=== PATIENT | male | born 1975 | race Caucasian/White ===

== ENCOUNTER 2020-02-16 19:44 | Emergency (ER) | payer BC ==
[~2020-02-16] VITALS: Ht 200.7 cm; Wt 111.1 kg
--- OUTSIDE RECORDS SUMMARY | ~2020-02-16 | XMS | Encounter Summary ---
Demographics + + + | Address | [address] | | | [place] [address] | + + + | Home Phone | | + + + | Preferred Language | Unknown | + + + | Marital Status | | + + + | Episcopal Affiliation | Unknown | + + + | Race | Unknown | + + + | Ethnic Group | Unknown | + + + Author + + + | Author | [facility] | | | and [place] | + + + | Organization | [facility] | | | and [place] | + + + | Address | Unknown | + + + | Phone | Unavailable | + + + Support + + +---------+ + | Name | Relationship | Address | Phone | + + +---------+ + | Lucy Valdez | ECON | Unknown | | + + +---------+ + Care Team Providers + +------+ + | Care Edge Cutting Machine Operator Name | Role | Phone | + +------+ + PCP | Unavailable | + +------+ + Encounter Details +--------+ + + + + | Date | Type | Department | Care Team | Description | +--------+ + + + + | 03/09/ | Emergency | [facility] | Conversion | CONTUSION OF BACK | | 2001 | | MEDICAL CENTER | Transaction, | | | | | EMERGENCY CENTER | Provider Unknown | | | | | [address] [facility] | | | | | | [place], [place] | (Fax) | | | | | [address] | | | | | | [phone] | | | +--------+ + + + + Social History + +-------+ +--------+------+ | Tobacco Use | Types | Packs/Day | Years | Date | | | | | Used | | + +-------+ +--------+------+ | Never Assessed | | | | | + +-------+ +--------+------+ + + + | Sex Assigned at | Date Recorded | | | | + + + | Not on file | | + + + + + + + | Job Start Date | Occupation | Industry | + + + + | Not on file | Not on file | Not on file | + + + + + + + + | Travel History | Travel Start | Travel End | + + + + + + | No recent travel history available. | + + documented as of this encounter Plan of Treatment Not on filedocumented as of this encounter Visit Diagnoses + + | Diagnosis | + + | Contusion of back(922.31) Contusion of back | + + documented in this encounter"
--- OUTSIDE RECORDS SUMMARY | ~2020-02-16 | XMS | Clinical Summary ---
Demographics + + + | Address | [address] | | | [place] [address] | + + + | Home Phone | | + + + | Preferred Language | Unknown | + + + | Marital Status | | + + + | Lutheran Affiliation | Unknown | + + + | Race | Unknown | + + + | Ethnic Group | Unknown | + + + Author + + + | Author | [facility] | | | and [place] | + + + | Organization | [facility] | | | and [place] | [...] Team Providers + +------+ + | Care Service Learning Coordinator Name | Role | Phone | + +------+ + PCP | Unavailable | + +------+ + Allergies No Known Allergies Medications Not on file Active Problems Not on file Social History + +-------+ +--------+------+ | Tobacco [...] recent travel history available. | + + Last Filed Vital Signs + + + + + | Vital Sign | Reading | Time Taken | Comments | + + + + + | Blood Pressure | - | - | | + + + + + | Pulse | - | - | | + + + + + | Temperature | - | - | | + + + + + | Respiratory Rate | - | - | | + + + + + | Oxygen Saturation | - | - | | + + + + + | Inhaled Oxygen | - | - | | | Concentration | | | | + + + + + | Weight | 111.1 kg (245 lb) | 10/29/2010 12:00 AM | | | | | PST | | + + + + + | Height | 200.7 cm (6' 7") | 10/29/2010 12:00 AM | | | | | PST | | + + + + + | Body Mass Index | 27.6 | 10/29/2010 12:00 AM | | | | | PST | | + + + + + Plan of Treatment + + + + + | Health Maintenance | Due Date | Last Done | Comments | + + + + + | Vaccine: | | | | | Dtap/Tdap/Td (1 - | 5 | | | | Tdap) | | | | + + + + + | Vaccine: Influenza | | | | | (Season Ended) | 0 | | | + + + + + Results Not on filefrom Last 3 Months
--- OUTSIDE RECORDS SUMMARY | ~2020-02-16 | XMS | Encounter Summary ---
Demographics + + + | Address | [address] | | | [place] [address] | + + + | Home Phone | | + + + | Preferred Language | Unknown | + + + | Marital Status | | + + + | Sikh Affiliation | Unknown | + + + | Race | Unknown | + + + | Ethnic Group | Unknown | + + + Author + + + | Author | [facility] | | | and [place] | + + + | Organization | [facility] | | | and [...] Team Providers + +------+ + | Care Vessel Operator Name | Role | Phone | + +------+ + PCP | Unavailable | + +------+ + Encounter Details +--------+ + + + + | Date | Type | Department | Care Team | Description | +--------+ + + + + | 03/09/ | Emergency | [facility] | Conversion | CONTUSION OF BACK | | 2001 | | MEDICAL CENTER | Transaction, | | | | | EMERGENCY CENTER | Provider Unknown | | | | | [address] [facility] | | | | | | [place], [place] | (Fax) | | | | | [address] | | | | | | [phone] | | | +--------+ + + + [...]
--- OUTSIDE RECORDS SUMMARY | ~2020-02-16 | XMS | Encounter Summary ---
Demographics + + + | Address | [address] | | | [place] [address] | + + + | Home Phone | | + + + | Preferred Language | Unknown | + + + | Marital Status | | + + + | Congregational Affiliation | Unknown | + + + | Race | Unknown | + + + | Ethnic Group | Unknown | + + + Author + + + | Author | [facility] | | | and [place] | + + + | Organization | [facility] | | | and [...] Team Providers + +------+ + | Care Electrical Tests Supervisor Name | Role | Phone | + +------+ + PCP | Unavailable | + +------+ + Encounter Details +--------+ + + + + | Date | Type | Department | Care Team | Description | +--------+ + + + + | 11/11/ | Hospital | [facility] | | | | 1995 | Encounter | MED CTR MP INTRA OP | | | | | | [address] | | | | | | [place] | | | | | | [address] | | | | | | [phone] | | | +--------+ + + + [...] filedocumented as of this encounter Visit Diagnoses Not on filedocumented in this encounter"
--- OUTSIDE RECORDS SUMMARY | ~2020-02-16 | XMS | Encounter Summary ---
Demographics + + + | Address | [address] | | | [place] [address] | + + + | Home Phone | | + + + | Preferred Language | Unknown | + + + | Marital Status | | + + + | Orthodox Affiliation | Unknown | + + + | Race | Unknown | + + + | Ethnic Group | Unknown | + + + Author + + + | Author | [facility] | | | and [place] | + + + | Organization | [facility] | | | and [place] | [...] Team Providers + +------+ + | Care Operations Support Professionals Name | Role | Phone | + +------+ + PCP | Unavailable | + +------+ + Encounter Details +--------+ + + + + | Date | Type | Department | Care Team | Description | +--------+ + + + + | 05/28/ | Abstract | [place] [facility] | [facility] | | | 2011 | | Conversion Location | SR | | | | | [address] [facility] | | | | | | [place], [place] | | | | | | [address] | | | | | | [phone] | | | +--------+ + + + [...] + + documented as of this encounter Last Filed Vital Signs + + + [...] | | + + + + + documented in this encounter Plan of Treatment Not on filedocumented as of this encounter Visit Diagnoses Not on filedocumented in this encounter
--- OUTSIDE RECORDS SUMMARY | ~2020-02-16 | XMS | Encounter Summary ---
Demographics + + + | Address | [address] | | | [place] [address] | + + + | Home Phone | | + + + | Preferred Language | Unknown | + + + | Marital Status | | + + + | Holiness Affiliation | Unknown | + + + | Race | Unknown | + + + | Ethnic Group | Unknown | + + + Author + + + | Author | [facility] | | | and [place] | + + + | Organization | [facility] | | | and [place] [...] Team Providers + +------+ + | Care Raw Cheese Worker Name | Role | Phone | + +------+ + PCP | Unavailable | + +------+ + Encounter Details +--------+ + + + + | Date | Type | Department | Care Team | Description | +--------+ + + + + | 10/15/ | Hospital | [facility] | | | | 2004 | Encounter | MED CTR GENERIC IP | | | | | | CONV DEPT [address] | | | | | | [address], | | | | | | [place] [address] | | | | | | [phone] | | | +--------+ + + + [...]
--- OUTSIDE RECORDS SUMMARY | ~2020-02-16 | XMS | Encounter Summary ---
Demographics + + + | Address | [address] | | | [place] [address] | + + + | Home Phone | | + + + | Preferred Language | Unknown | + + + | Marital Status | | + + + | Jewish Affiliation | Unknown | + + + | Race | Unknown | + + + | Ethnic Group | Unknown | + + + Author + + + | Author | [facility] | | | and [place] | + + + | Organization | [facility] | | | and [...] Team Providers + +------+ + | Care Weatherization Operations Manager Name | Role | Phone | + +------+ + PCP | Unavailable | + +------+ + Encounter Details +--------+ + + + + | Date | Type | Department | Care Team | Description | +--------+ + + + + | 11/07/ | Hospital | [facility] | | | | 1995 | Encounter | MED CTR LABORATORY | | | | | | [address] | | | | | | [place] | | | | | | [address] | | | | | | [phone] | | | +--------+ + + + [...]
--- OUTSIDE RECORDS SUMMARY | ~2020-02-16 | XMS | Encounter Summary ---
Demographics + + + | Address | [address] | | | [place] [address] | + + + | Home Phone | | + + + | Preferred Language | Unknown | + + + | Marital Status | | + + + | Taoist Affiliation | Unknown | + + + | Race | Unknown | + + + | Ethnic Group | Unknown | + + + Author + + + | Author | [facility] | | | and [place] | + + + | Organization | [facility] | [...] Team Providers + +------+ + | Care Picker Operator Name | Role | Phone | + +------+ + PCP | Unavailable | + +------+ + Encounter Details +--------+ + + + + | Date | Type | Department | Care Team | Description | +--------+ + + + + | 10/15/ | Hospital | [facility] | | | | 2004 | Encounter | MED CTR GENERIC IP | | | | | | CONV DEPT [address] | | | | | | [address] [place], | | | | | | [place] [address] | | | | | | [phone] | | | +--------+ + + + [...]
--- OUTSIDE RECORDS SUMMARY | ~2020-02-16 | XMS | Clinical Summary ---
Demographics + + + | Address | [address] | | | [place] [address] | + + + | Home Phone | | + + + | Preferred Language | Unknown | + + + | Marital Status | | + + + | Catholic Affiliation | Unknown | + + + | Race | Unknown | + + + | Ethnic Group | Unknown | + + + Author + + + | Author | [facility] | | | and [place] | + + + | Organization | [facility] | | | and [place] [...] Team Providers + +------+ + | Care Laundromat Manager Name | Role | Phone | [...]
--- OUTSIDE RECORDS SUMMARY | ~2020-02-16 | XMS | Encounter Summary ---
Demographics + + + | Address | [address] | | | [place] [address] | + + + | Home Phone | | + + + | Preferred Language | Unknown | + + + | Marital Status | | + + + | Yarsani Affiliation | Unknown | + + + | Race | Unknown | + + + | Ethnic Group | Unknown | + + + Author + + + | Author | [facility] | | | and [place] | + + + | Organization | [facility] | | | and [place] [...] Team Providers + +------+ + | Care Motor Vehicle Examiner Name | Role | Phone | + +------+ + PCP | Unavailable | + +------+ + Encounter Details +--------+ + + + + | Date | Type | Department | Care Team | Description | +--------+ + + + + | 11/07/ | Hospital | [facility] | | | | 1995 | Encounter | MED CTR LABORATORY | | | | | | [address] | | | | | | [place] | | | | | | [address] | | | | | | [phone] | | | +--------+ + + + [...]
--- OUTSIDE RECORDS SUMMARY | ~2020-02-16 | XMS | Encounter Summary ---
Demographics + + + | Address | [address] | | | [place] [address] | + + + | Home Phone | | + + + | Preferred Language | Unknown | + + + | Marital Status | | + + + | Rastafari Affiliation | Unknown | + + + | Race | Unknown | + + + | Ethnic Group | Unknown | + + + Author + + + | Author | [facility] | | | and [place] | + + + | Organization | [facility] | | | and [place] [...] Team Providers + +------+ + | Care Pantry Goods Maker Name | Role | Phone | + [...] | | | | | [address] [facility] | | | | | | [place], [place] | | | | | | [address] | | | | | | [phone] | | | +--------+ + + + [...]
--- OUTSIDE RECORDS SUMMARY | ~2020-02-16 | XMS | Encounter Summary ---
Demographics + + + | Address | [address] | | | [place] [address] | + + + | Home Phone | | + + + | Preferred Language | Unknown | + + + | Marital Status | | + + + | Catholic Affiliation | Unknown | + + + | Race | Unknown | + + + | Ethnic Group | Unknown | + + + Author + + + | Author | [facility] | | | and [place] | + + + | Organization | [facility] | | | and [place] | [...] Team Providers + +------+ + | Care Regulatory Technician Name | Role | Phone | + +------+ + PCP | Unavailable | + +------+ + Encounter Details +--------+ + + + + | Date | Type | Department | Care Team | Description | +--------+ + + + + | 11/11/ | Hospital | [facility] | | | | 1995 | Encounter | MED CTR MP INTRA OP | | | | | | [address] | | | | | | [place] | | | | | | [address] | | | | | | [phone] | | | +--------+ + + + [...]
[2020-02-16] MEDS ORDERED: LISINOPRIL-HCT1 EACH PO (20:03)
[2020-02-16] MEDS ORDERED: CITALOPRAM HBR20 MG PO (20:03)
--- NOTE | 2020-02-16 21:11 | EKG ---
[facility] [address] [facility] [place], [place] [address] Signed Sinus rhythm with 1st degree AV block Low voltage QRS Borderline ECG No previous ECGs available Confirmed by AHSAN WYNNE DO ([id number]) on 02/16/2020 9:11:36 PM Electronically Signed By: AHSAN WYNNE DO 02/16/202110 PATIENT NAME: STERLING QUIJANO Electrocardiogram DATE OF : 73 PHYSICIAN: AHSAN WYNNE DO REPORT #: [id number] REPORT IS CONFIDENTIAL AND NOT TO BE RELEASED WITHOUT AUTHORIZATION
== END 2020-02-16 22:48 | disposition home or self-care (01) ==
LOC: ED 19:44
PROC: 0HQ1XZZ Repair Face Skin, External Approach (ICD-10-PCS; principal; 2020-02-16)
DX: I95.1 Orthostatic hypotension (principal); S01.111A Laceration without foreign body of right eyelid and periocular area, initial encounter; S20.229A Contusion of unspecified back wall of thorax, initial encounter; S30.0XXA Contusion of lower back and pelvis, initial encounter; S50.12XA Contusion of left forearm, initial encounter; I10 Essential (primary) hypertension; F32.9 Major depressive disorder, single episode, unspecified; Z23 Encounter for immunization; Z79.899 Other long term (current) drug therapy; X58.XXXA Exposure to other specified factors, initial encounter
CPT/HCPCS: 12011; 70450; 71045; 72125; 80053; 81001; 83735; 84484; 85025; 85610; 85730; 90471; 90715; 93005; 93010; 99285-25; J7030

== ENCOUNTER 2021-10-13 00:19 | Inpatient (IN) | payer SELFPAY ==
[~2021-10-13] VITALS: Ht 198.1 cm; Wt 63.4 kg
[~2021-10-13 00:19] MED LIST: ALPRAZOLAM0.5 MG PO; CITALOPRAM HBR20 MG PO; LISINOPRIL-HCT1 EACH PO; NALTREXONE HCL50 MG PO; OMEPRAZOLE40 MG PO; PANTOPRAZOLE SO20 MG PO
[2021-10-13] MEDS ORDERED: OMEPRAZOLE20 MG PO (00:31)
[2021-10-13] MEDS ORDERED: METFORMIN HCL1000 MG PO (00:31)
[2021-10-13] MEDS ORDERED: FLUOXETINE HCL20 M1 PO (00:32)
[2021-10-13] MEDS ORDERED: PIOGLITAZONE HC15 MG PO (00:33)
[2021-10-13] MEDS ORDERED: LISINOPRIL10 MG PO (11:26)
--- NOTE | 2021-10-13 11:30 | NUR ---
REPORT RECIEVED FROM ER AND PT. ARRIVED VIA STRETCHER. PT. IS ALERT AND ORIENTED TO ALL. NO NEURO DEFICITS NOTED. LAC. ON BACK OF HEAD IS DRAINING SERISANGUINOUS FLUID AND GAUZE DRESSING IN PLACE. HEMATOMA PRESENT WELL. IVF INFUSING. IV SITES WNL. PT. IS ON TELE #7 AND IN SINUS TACH. HE DENIES PAIN AT THIS TIME. MEDS ADMIN. PT. EDUCATED ON SAFETY, AMBULATION, S/SX TO REPORT MEDS AND POC. LEFT RESTING WITH CALL LIGHT IN REACH.
[2021-10-13] MEDS ORDERED: ACAMPROSATE CA333 MG PO (11:35)
[2021-10-13] MEDS ORDERED: TRAZODONE HCL50 MG PO (12:56)
--- NOTE | 2021-10-13 13:01 | NUR ---
MED REC COMPLETE
--- NOTE | 2021-10-13 14:28 | NUR ---
PT REFUSED LUNCH. PT SAYS HE JUST DOESNT FEEL VERY GOOD. CALL LIGHT WITHIN REACH NO FURTHER NEEDS AT THIS TIME.
--- NOTE | 2021-10-13 15:04 | NUR ---
WOUND NURSE CONSULT. PT SEEN FOR LACERATION TO BACK OF HEAD. PICTURES PLACED IN CHART. NO MEASUREMENTS TAKEN. WASHED WOUND WITH MILD SOAP AND WATER. AIR DRIED. STERISTRIPS PLACED OVER LACERATION TO APPROXIMATE EDGES BEST POSSIBLE. BACITRACIN APPLIED OVER TOP. ADAPTIC PLACED OVER TOP TO PREVENT GAUZE FROM STICKING TO WOUND. COVERED AND WRAPPED WITH GAUZE AND KERLEX. CHANGE PRN FOR DRAINAGE.
--- NOTE | 2021-10-13 17:09 | NUR ---
SBA PT TO BR. PT USED WALKER SUPPORT WHEN STANDING. VS DONE. CALL LIGHT WITHIN REACH, NO FURTHER NEEDS AT THIS TIME. BS CHECK DONE
--- NOTE | 2021-10-13 19:36 | NUR ---
SHIFT REPORT RECEIVED FROM DEBRA ANDREWS. PT UP TO BR AND BACK TO BED, TESS FWW. TELE HR SR @ 99. IV FLUIDS INFUSING PER ORDER. NO NEEDS AT THIS TIME. CALL LIGHT IN REACH.
--- NOTE | 2021-10-13 20:30 | NUR ---
ASSESSMENT, VS AND I&O COMPLETED. PT STATES HE HAS A 4/10 SCHUMACHER, PRN TYLENOL PROVIDED. SCHEDULED MEDS PROVIDED. GCS 15, A&O X4. HEAD WOUND HAS STERI STRIPS, SCANT SEROUS DRAINAGE. LUNGS CLEAR, HEART TONES REGULAR. ABD SOFT, NONTENDER, BOWEL TONES ACTIVE. PT HAS BRUISING ON LEFT FLANK. PT HAS CHRONIC NUMBNESS IN FEET, PULSE AND MOTOR INTACT. UPPER EXTREMITY CMS INTACT. SNACK AND ICE WATER PROVIDED. NO OTHER NEEDS. CALL LIGHT IN REACH.
--- NOTE | 2021-10-14 00:12 | NUR ---
PT RESTING IN BED, EYES CLOSED. RR EVEN, UNLABORED. CALL LIGHT IN REACH.
--- NOTE | 2021-10-14 01:03 | NUR ---
PT CALLS TO HAVE URINAL EMPTIED, PROVIDED. ICE WATER PROVIDED. VS AND I&O COMPLETED. IV FLUIDS INFUSING PER ORDER. NO OTHER NEEDS. CALL LIGHT IN REACH.
--- NOTE | 2021-10-14 02:56 | NUR ---
PT UP TO BR AND BACK TO BED. PT SAYS HE "FEELS BETTER THAN I HAVE IN A LONG TIME." PT STATES HE IS NO LONGER WEAK. ASSESSMENT COMPLETED. HEAD WOUND UNCHANGED. IV WNL, IV FLUIDS INFUSING PER ORDER. CALL LIGHT IN REACH.
--- NOTE | 2021-10-14 03:49 | NUR ---
PT UP TO BR, SBA FWW, BACK TO BED. NEW BAG IV FLUIDS PROVIDED. NO OTHER NEEDS. IV WNL. CALL LIGHT IN REACH.
--- NOTE | 2021-10-14 05:28 | NUR ---
PT RESTING IN BED, EYES CLOSED. SPO2 98%. CALL LIGHT IN REACH.
--- NOTE | 2021-10-14 05:46 | NUR ---
PT CALLS TO HAVE URINAL EMPTIED, PROVIDED. VS AND I&O COMPLETED. ICE WATER PROVIDED. NO OTHER NEEDS. CALL LIGHT IN REACH.
--- NOTE | 2021-10-14 07:45 | NUR ---
Shift report received from RN Dot, pt resting safely w/ call light in reach and eyes closed. RR even and unlabored on RA. Tele #7 showing SR w/ HR in the 90's.
--- NOTE | 2021-10-14 08:51 | NUR ---
PT SLEEPING. EMPTIED URINAL. CALL LIGHT JUSTEN GARDNER.
--- NOTE | 2021-10-14 09:37 | NUR ---
Pt called for assistance, SBA w/FWW to BR, pt voided and now sitting up in bed w/ call light in reach, eating breakfast. Morning assesment completed, scheduled meds, and IV fluids infusing per provider orders. Pt denies any further needs at this time
[2021-10-14] MEDS ORDERED: GLIPIZIDE10 MG PO (10:09)
--- NOTE | 2021-10-14 10:19 | NUR ---
PT IN BED WATCHING TV. LIGHTS TURNED OUT PER PT REQUEST. CALL LIGHT WITHIN REACH NO FURTHER NEEDS AT THIS TIME.
[2021-10-14] MEDS ORDERED: TRAZODONE HCL50 MG PO (10:42)
--- NOTE | 2021-10-14 11:10 | NUR ---
DISCHARGE INSTRUCTIONS GIVEN BOTH IN WRITTEN AND VERBAL FORM TO PT, ALL QUESTIONS AND CONCERNS ANSWERED, PT GIVEN EDUCATION ON NEW MEDICATIONS AND DIABETIC DIET. BOTH IV SITES REMOVED, NO REDNESS OR SWELLING NOTED, GAUZE AND COBAN APPLIED, PT EDUCATED ON POST IV SITE CARE. VSS ON RA. PT TAKEN VIA W/C TO FRONT LOBBY WHERE FRIEND WAS WAITING TO TRANSPORT PT HOME.
== END 2021-10-14 11:10 | disposition home or self-care (01) | DRG 86 ==
LOC: ED 00:19 → MS 10:19
PROVIDERS: ADMIT Internal Medicine; ATTEND Internal Medicine
DX: S06.6X1A Traumatic subarachnoid hemorrhage with loss of consciousness of 30 minutes or less, initial encounter (principal); E87.2 Acidosis; E87.1 Hypo-osmolality and hyponatremia; Z20.822 Contact with and (suspected) exposure to COVID-19; I10 Essential (primary) hypertension; S01.01XA Laceration without foreign body of scalp, initial encounter; E86.0 Dehydration; E11.65 Type 2 diabetes mellitus with hyperglycemia; R29.6 Repeated falls; F32.A Depression, unspecified; F41.9 Anxiety disorder, unspecified; Z98.890 Other specified postprocedural states; Z79.84 Long term (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 of oral hypoglycemic drugs; Z79.899 Other long term (current) drug therapy; W18.39XA Other fall on same level, initial encounter; Y92.481 Parking lot as the place of occurrence of the external cause
CPT/HCPCS: 70450; 72125; 80048; 80053; 81001; 82010; 82803; 83735; 85025; 90714; C9803; J1815; J3480; J7030; U0003

== ENCOUNTER 2021-12-27 06:58 | Inpatient (IN) | payer OTHER ==
[~2021-12-27] VITALS: Ht 198.1 cm; Wt 109.5 kg
[~2021-12-27 06:58] MED LIST changes: +ACAMPROSATE CA333 MG PO; +FLUOXETINE HCL20 M1 PO; +GLIPIZIDE10 MG PO; +LISINOPRIL10 MG PO; +METFORMIN HCL1000 MG PO; +OMEPRAZOLE20 MG PO; +PIOGLITAZONE HC15 MG PO; +TRAZODONE HCL50 MG PO
[2021-12-27] MEDS ORDERED: BASAGLAR K100 UNIT/1 SUB-Q (07:12)
[2021-12-28] MEDS ORDERED: CITALOPRAM HBR40 MG PO (16:01)
[2022-01-03] MEDS ORDERED: CITALOPRAM HBR40 MG PO (15:52)
[2022-01-03] MEDS ORDERED: MILLIPRED5 MG PO (16:24)
[2022-01-03] MEDS ORDERED: VITAMIN D350 MCG PO (16:25)
[2022-01-03] MEDS ORDERED: CEFPODOXIME PR200 MG PO (16:33)
[2022-01-03] MEDS ORDERED: PREDNISOLO15 MG/5 ML PO (16:56)
== END 2022-01-03 17:45 | disposition home or self-care (01) | DRG 432 ==
LOC: ED 06:58 → CCU 11:05 → MS 01-01 16:45
PROVIDERS: ADMIT Internal Medicine; ATTEND Internal Medicine
DX: K70.30 Alcoholic cirrhosis of liver without ascites (principal); G93.41 Metabolic encephalopathy; F10.239 Alcohol dependence with withdrawal, unspecified; E87.1 Hypo-osmolality and hyponatremia; Z20.822 Contact with and (suspected) exposure to COVID-19; K70.40 Alcoholic hepatic failure without coma; K70.10 Alcoholic hepatitis without ascites; E86.0 Dehydration; F32.A Depression, unspecified; E11.9 Type 2 diabetes mellitus without complications; I10 Essential (primary) hypertension; F41.9 Anxiety disorder, unspecified; Z79.4 Long term (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; Z79.899 Other long term (current) drug therapy
CPT/HCPCS: 36415; 70450; 71045; 76705; 80053; 81001; 82140; 82247; 82306; 82607; 83036; 83690; 83735; 83880; 84100; 84425; 85025; 85610; 85730; 87088; 94640; 96365; 97110; 97116; 97162; 97165; 97530; 97535; 99285-25; C9113; C9803; G0480; J0456; J0696; J1815; J1940; J2060; J3411; J3475; J3480; J7030; J7060; J7120; J7121; J7510; U0003

== ENCOUNTER 2022-01-07 13:14 | Emergency (ER) | payer OTHER ==
[~2022-01-07] VITALS: Ht 198.1 cm; Wt 99.8 kg
[~2022-01-07 13:14] MED LIST changes: +BASAGLAR K100 UNIT/1 SUB-Q; +CEFPODOXIME PR200 MG PO; +CITALOPRAM HBR40 MG PO; +MILLIPRED5 MG PO; +PREDNISOLO15 MG/5 ML PO; +VITAMIN D350 MCG PO
--- OUTSIDE RECORDS SUMMARY | 2022-01-07 13:16 | XMS ---
PreManage Notification: STERLING QUIJANO Security Infrastructure Developer Events No recent Security Events currently on file CRITERIA MET - [facility] - 2 Visits in 30 Days CARE PROVIDERS TORRES ASHTON Seedling Puller 12/28/2021-Current PHONE: [phone] [facility] 09/29/2020-Current PHONE: Unknown JOSE MATA [facility] Current PHONE: [phone] [place] has no Care Guidelines for this patient. E.Leobardo VISIT COUNT (12 MO.) 3 [facility] TOTAL 3 NOTE: Visits indicate total known visits. ED/UCC VISIT TRACKING (12 MO.) 01/07/2022 13:15 [facility] TYPE: Emergency COMPLAINT: - BOTH ANKLES SWOLLEN 12/27/2021 07:00 [facility] TYPE: Emergency COMPLAINT: - ALTERED MENTAL STATUS 10/13/2021 00:20 [facility] TYPE: Emergency COMPLAINT: - FALL INPATIENT VISIT TRACKING (12 MO.) 12/27/2021 11:05 [facility] TYPE: Medical Surgical COMPLAINT: - ALCOHOLIC HEPATITIS ENCEPHALOPATHY DIAGNOSES: - Type 2 diabetes mellitus without complications - Essential (primary) hypertension - Anxiety disorder, unspecified - Other middle or intermediate school principal (current) drug therapy - jail (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 - Metabolic encephalopathy - Hypo-osmolality and hyponatremia - Hypo-osmolality and hyponatremia - Alcoholic cirrhosis of liver without ascites - Alcohol dependence with withdrawal, unspecified - Essential (primary) hypertension - Type 2 diabetes mellitus without complications - Alcoholic hepatic failure without coma - Other half-way (current) drug therapy - Dehydration - Contact with and (suspected) exposure to COVID-19 - Anxiety disorder, unspecified - Metabolic encephalopathy - termite control servicer (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 - Alcoholic cirrhosis of liver without ascites - Alcohol dependence with withdrawal, unspecified - Alcoholic hepatitis without ascites - Depression, unspecified - Alcoholic hepatitis without ascites - Depression, unspecified - Dehydration - Contact with and (suspected) exposure to COVID-19 10/13/2021 10:[address] [facility] [place] TYPE: Medical Surgical COMPLAINT: - ACUTE SUBARACHNOID HEMORRHAGE,SYNCOPE WITH COLLAPS DIAGNOSES: - Type 2 diabetes mellitus without complications - Other specified postprocedural states - Type 2 diabetes mellitus with hyperglycemia - Traumatic subarachnoid hemorrhage with loss of consciousness of 30 minutes or less, initial encounter - Laceration without foreign body of scalp, initial encounter - Anxiety disorder, unspecified - Anxiety disorder, unspecified - Contact with and (suspected) exposure to COVID-19 - Hypo-osmolality and hyponatremia - Other fall on same level, initial encounter - Traumatic subarachnoid hemorrhage with loss of consciousness of 30 minutes or less, initial encounter - Repeated falls - Essential (primary) hypertension - Traumatic subarachnoid hemorrhage with loss of consciousness of unspecified duration, initial encounter - Parking lot as the place of occurrence of the external cause - Type 2 diabetes mellitus with hyperglycemia - termite control servicer (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 of oral hypoglycemic drugs - Dehydration - Other half-way (current) drug therapy - DEPRESSION, UNSPECIFIED - Essential (primary) hypertension - Depression, unspecified - Dehydration - Other specified postprocedural states - Repeated falls - Other middle or intermediate school principal (current) drug therapy - Acidosis - Laceration without foreign body of scalp, initial encounter - Parking lot as the place of occurrence of the external cause - Hypo-osmolality and hyponatremia - Acidosis - jail (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 of oral hypoglycemic drugs - Other fall on same level, initial encounter - DEPRESSION, UNSPECIFIED [email or web address]
[2022-01-07] MEDS ORDERED: LASIX40 MG PO (17:33)
== END 2022-01-07 18:10 | disposition home or self-care (01) ==
LOC: ED 13:14
DX: R60.0 Localized edema (principal); I10 Essential (primary) hypertension; E11.9 Type 2 diabetes mellitus without complications; Z79.899 Other long term (current) drug therapy; Z79.4 Long term (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
CPT/HCPCS: 36415; 80053; 83880; 85025; 96374; 99284-25; J1940

== ENCOUNTER 2022-04-26 17:44 | Emergency (ER) | payer OTHER ==
[~2022-04-26] VITALS: Ht 198.1 cm; Wt 99.8 kg
[~2022-04-26 17:44] MED LIST changes: +LASIX40 MG PO
[2022-04-26] MEDS ORDERED: GABAPENTIN300 MG PO (17:57)
[2022-04-26] MEDS ORDERED: INSULIN GL100 UNIT/2 SQ (17:57)
[2022-04-26] MEDS ORDERED: METFORMIN HCL1000 MG PO (17:57)
[2022-04-26] MEDS ORDERED: SPIRONOLACTONE50 MG PO (17:57)
[2022-04-26] MEDS ORDERED: CITALOPRAM HBR20 MG PO (17:58)
[2022-04-26] MEDS ORDERED: HYDROXYZINE HCL10 MG PO (17:58)
== END 2022-04-26 19:31 | disposition home or self-care (01) ==
LOC: ED 17:44
DX: S20.214A Contusion of middle front wall of thorax, initial encounter (principal); I10 Essential (primary) hypertension; E11.42 Type 2 diabetes mellitus with diabetic polyneuropathy; Z79.899 Other long term (current) drug therapy; Z79.4 Long term (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; W01.0XXA Fall on same level from slipping, tripping and stumbling without subsequent striking against object, initial encounter
CPT/HCPCS: 71111; 99283-25

== ENCOUNTER 2022-06-15 13:38 | Inpatient (IN) | payer OTHER ==
[~2022-06-15] VITALS: Ht 198.1 cm; Wt 100.2 kg
[~2022-06-15 13:38] MED LIST changes: +GABAPENTIN300 MG PO; +HYDROXYZINE HCL10 MG PO; +INSULIN GL100 UNIT/2 SQ; +SPIRONOLACTONE50 MG PO
--- OUTSIDE RECORDS SUMMARY | 2022-06-15 13:40 | XMS ---
PreManage Notification: STERLING QUIJANO Security Registration Officer Events No recent Security Events currently on file CRITERIA MET - [facility] JOYCETYTORRES Graphic Design Teacher 12/28/2021-Current PHONE: [phone] ZEKE BLANCO Family Medicine 09/29/2020-Current PHONE: Unknown JOSE MATA [facility] Current PHONE: [phone] [place] has no Care Guidelines for this patient. E.D. VISIT COUNT (12 MO.) 5 SIENA Fung TOTAL 5 NOTE: Visits indicate total known visits. 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 - Fall on same level from slipping, tripping and stumbling without subsequent striking against object, initial encounter 01/07/2022 13:15 SIENA Torres OR TYPE: Emergency COMPLAINT: - BOTH ANKLES SWOLLEN DIAGNOSES: - Type 2 diabetes mellitus without complications - Other chcf (current) drug therapy - 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 - Localized edema - Essential (primary) hypertension 12/27/2021 07:00 SIENA Torres OR TYPE: Emergency COMPLAINT: - ALTERED MENTAL STATUS 10/13/2021 00:20 SIENA Torres OR TYPE: Emergency COMPLAINT: - FALL INPATIENT VISIT TRACKING (12 MO.) 12/27/2021 11:05 SIENA Torres OR TYPE: Medical Surgical COMPLAINT: - ALCOHOLIC HEPATITIS ENCEPHALOPATHY DIAGNOSES: - Alcoholic hepatic failure without coma - Alcoholic hepatitis without ascites - Metabolic encephalopathy - Type 2 diabetes mellitus without complications - Alcoholic hepatitis without ascites - Hypo-osmolality and hyponatremia - Anxiety disorder, unspecified - Dehydration - Alcohol dependence with withdrawal, unspecified - 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 - Anxiety disorder, unspecified - Dehydration - Type 2 diabetes mellitus without complications - Alcohol dependence with withdrawal, unspecified - group home (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 - Other chcf (current) drug therapy - Depression, unspecified - Hypo-osmolality and hyponatremia - Contact with and (suspected) exposure to COVID-19 - Depression, unspecified - Alcoholic cirrhosis of liver without ascites - Metabolic encephalopathy - Essential (primary) hypertension - Contact with and (suspected) exposure to COVID-19 - Essential (primary) hypertension - Alcoholic cirrhosis of liver without ascites - Other chcf (current) drug therapy 10/13/2021 10:19 SIENA Torres OR TYPE: Medical Surgical COMPLAINT: - ACUTE SUBARACHNOID HEMORRHAGE,SYNCOPE WITH COLLAPS DIAGNOSES: - Other fall on same level, initial encounter - Parking lot as the place of occurrence of the external cause - Other specified postprocedural states - Anxiety disorder, unspecified - Acidosis - Essential (primary) hypertension - Depression, unspecified - Traumatic subarachnoid hemorrhage with loss of consciousness of 30 minutes or less, initial encounter - Parking lot as the place of occurrence of the external cause - Traumatic subarachnoid hemorrhage with loss of consciousness of 30 minutes or less, initial encounter - DEPRESSION, UNSPECIFIED - Other specified postprocedural states - Dehydration - Hypo-osmolality and hyponatremia - Acidosis - DEPRESSION, UNSPECIFIED - Type 2 diabetes mellitus with hyperglycemia - Repeated falls - Anxiety disorder, unspecified - group home (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 of oral hypoglycemic drugs - Traumatic subarachnoid hemorrhage with loss of consciousness of unspecified duration, initial encounter - Dehydration - Laceration without foreign body of scalp, initial encounter - Hypo-osmolality and hyponatremia - Repeated falls - Essential (primary) hypertension - Type 2 diabetes mellitus with hyperglycemia - Laceration without foreign body of scalp, initial encounter - Type 2 diabetes mellitus without complications - Other medical terminologist (current) drug therapy - Other fall on same level, initial encounter - marine oil terminal superintendent (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 of oral hypoglycemic drugs - Other medical terminologist (current) drug therapy - Contact with and (suspected) exposure to COVID-19 [email or web address]
--- NOTE | 2022-06-15 14:30 | EKG ---
[facility] [address] [facility] [place] [address] Signed Sinus tachycardia Low voltage QRS Nonspecific T wave abnormality Abnormal ECG When compared with ECG of 28-SEP-2020 18:16, Minimal criteria for Inferior infarct are no longer present Confirmed by KENYA HAMPTON MD ([id number]) on 06/15/2022 2:29:54 PM Electronically Signed By: KENYA HAMPTON MD 06/15/22 1430 PATIENT NAME: MACIESTERLING Electrocardiogram DATE OF : 73 PHYSICIAN: EKNYA HAMPTON MD REPORT #: [id number] REPORT IS CONFIDENTIAL AND NOT TO BE RELEASED WITHOUT AUTHORIZATION
--- NOTE | 2022-06-15 19:28 | NUR ---
MORPHINE 2MG IV PRN ADMINISTERED AT THIS TIME FOR 7/10 PAIN AT LEFT CHEST RELATED TO FRACTURED RIB, PT IS ALERT AND ORIENTED, HE REPORTS HE IS NOT HAVING ANY RESP DIFFICULTY, HE DOES NOT HAVE ANY RESP DIST ON ASSESSMENT.
--- NOTE | 2022-06-15 19:34 | NUR ---
ADMINISTERED MEDICAITONS, BP 94/66 AND COSIDERATION OF MEDICATING WITH IV MORPHINE, THE SPIROLACTONE IS BEING HELD AT THIS TIME TIME. LR @ 85 INFUSING. ORDERS PLACED FOR SLIDING SCALE INSULINE PER DR. MATHIS NOTE IN NURSE NOTIFY. PROVIDED PATIENT WITH ICE WATER.
--- NOTE | 2022-06-15 19:58 | NUR ---
PT ARRIVED AT 1855 TO ROOM 129, HE IS ALERT ADN ORIENTED. NO RESP DISTRESS, NO AIR LEAKS NOTED ONCE PLACED TO WALL SUCTION, PT TRANSFERED HIMSELF TO HOSP BED.
--- NOTE | 2022-06-15 20:00 | NUR ---
PT RESTING IN BED WATCHING TV, HE REPORTS PAIN IS TOLERABLE AT THIS TIME, EXTRA PILLOWS PROVIDED FOR IMPROVED COMFORT, PT SAID HE IS LOOKING FORWARD TO A SPORTS GAME ON TV. ASSESSMENT NOTED CREPITUS AT PT LEFT NECK LEFT UPPER CHEST, STABLE AT THIS TIME. CHEST TO WALL SUCTION BILLOWS EXTENDED, NO LEAK NOTED AT THIS TIME. PT ALERT AND ORIENTED. RESP RATE 18 BREATH/MIN. NO NEW CONCERNS FROM REPORT.
--- NOTE | 2022-06-15 20:59 | NUR ---
PT REQUESTED AN ICE PACK TO TRY ON HIS BACK TO HELP WITH DISCOMFORT. PROVIDED, FAMILY BROUGHT IN PT HOME LONG ACTING INSULIN ORDER PLACED IN CHART WILL CHECK IN WITH PHARMACY IN AM.
--- NOTE | 2022-06-15 21:05 | NUR ---
CALLED FOR UPDATE ON PT, UPDATED, PT CONTINUES TO HAVE SOFT B/P, HELD SPIRONOLACTONE DUE TO SOFT B/P, PT ADMINISTERED 2 MOOPHINE FOR PAIN, PT NOW EATING FOOD, NEW ORDER FOR PO PAIN MEDICATIONS, NO AIR LEAKS NOTED AT CHEST TUBE DEVICE SINCE PLACED TO WALL SUCTION. NO OTHER NEW COCNERNS OR UPDATES.
--- NOTE | 2022-06-15 21:32 | NUR ---
PT ADMINSITERED 1 TAB PO PERCOCET PRN AT THIS TIME, WILL MONITOR FOR EFFECT, HE REPORTS PAIN 6/10 AT HIS LEFT POSTERIOR UPPER BACK APPROX. AT LEVEL OF RIB FRACTURE. HE REPROTS FEELS LIKE A MUSCLE CRAMP.
--- NOTE | 2022-06-15 21:51 | NUR ---
PT PROVIDED WARM PACK TO HIS BACK PAIN AREA, HE SAID "FEELS GOOD"
--- NOTE | 2022-06-15 22:46 | NUR ---
WHEN ASKED KAELA IN SHIFT IF PT WOULD BE OK WITH ORIENTING/NEW NURSES TO COME IN AND ASSESS THE CHEST TUBE AND CREPITUS, PT SAID "SURE, NO PROBLEM" PATRIC AND ORIENT MERLINE JUST INTO ROOM TO ASSESS.
--- NOTE | 2022-06-16 00:35 | NUR ---
PT UP TO SIT AT BEDSIDE TO USE URINAL, HE VOIDED 375ML OF DARK CHRISTIANO URINE, ON ASSISTING PT BACK TO BED IT IS NOTED THAT HE HAS A SIGNIFICANT AMOUNT OF RED DRAINAGE ON HIS GOWN AND HE LAYED BACK DOWN NOTED TO CONTINUE TO DRAIN ONTO HIS WHITE CHUCKS ON HIS BED. HE REPORTED INCREASE PAIN WITH ACTIVITY, HEART RATE UP TO 134 BEATS/MIN WHILE SITTING UP. PLACED GAUZE AT POSTERIOR EDGE OF CHEST TUBE DRESSING TO CATCH ANY FURTHER DRAINAGE. ONCE PT SETTLED CALLED TO REPORT ALL OF THIS INFORMATION TO. GAVE ORDER FOR CHEST XRAY NOW CONFIRM STABILITY OF CHEST TUBE AND PNEUMOTHORAX. THIS IS ORDERED STAT TO BE READ TONIGHT
--- NOTE | 2022-06-16 00:47 | NUR ---
CHEST XRAY DONE.
--- NOTE | 2022-06-16 01:55 | NUR ---
PT REPORTS HE IS COMFORTABLE AT THIS TIME, FRESH WATER PROVIDED NO OTHER CONCERNS AT THIS TIME. SINCE AT REST MINIMAL DRAINAGE NOTED AT CGEST TUBE INSERTION SITE. NO RESP DISTRESS, EMPHYSEMA SUBQ AT LEFT UPPER CHEST AND NECK REMAINS NOTABLE BUT IMPROVED ALSO SWELLING HAS IMPROVED SINCE ADMIT. NO NEW CONCERNS AT THIS TIME.
--- NOTE | 2022-06-16 02:31 | NUR ---
PT REPORTS PAIN 5/10, PERCOCET NOT AVAILABLE AT THIS TIME, PT ADMINISTERED 4MG IV MORPHINE PRN AT THIS TIME. ONLY SMALL AMOUNT OF DRAINAGE NOTED AT GAUZE PLACED BACK SIDE OF CHEST TUBE INSERTION SITE. NO AIR LEAK IN WATER SEAL CHAMBER ON ASSESSMENT.
--- NOTE | 2022-06-16 05:19 | NUR ---
ROUNDING ON PT WITH LAB THIS AM, PT REPORTS HE DOES NOT FEEL THE URGE TO VOID AT THIS TIME, HE REPORTS HIS PAIN IS "GOOD", ASSESSMENT COMPLETE, FRESH ICE WATER PROVIDED, NO OTHER REQUESTS OR CONCERNS.
--- NOTE | 2022-06-16 05:26 | NUR ---
CHEST TUBE ASSESSMENT SHOWS NO LEAKS IN THE WATER SEAL CHAMBER, DRAINAGE CHAMBER MARKED FOR OUTPUT. CALL LIGHT IN REACH NO NEW COCNERNS
--- NOTE | 2022-06-16 06:22 | NUR ---
CALLED IN FOR STATUS UPDATE, NOTED TO THAT PT HAD NOT VOIDED SINCE 0030 FOR 375ML, HE IS TRYING NOW. CXRAY WAS UNREMARKABLE, PT IS DOING WELL THIS AM, HE IS REPORTING FELLING ITCHY AFTER PAIN MEDICATIONS GIVEN LAST. BENADRYL ORDER RECEIVED. ASKED ABOUT NECK SWELLING, ASSESSMENT IS THAT IT HAS SHOWED SLIGHT IMPROVEMENT OVER THIS SHIFT.
--- NOTE | 2022-06-16 06:49 | NUR ---
PT REPORTS PAIN6/10 BACK PAIN 2 TABS PERCOCET PRN ADMINISTERED WELL BENEDRYL FOR HIS REPORTED ITCH AFTER HAVING IV MORPHINE AT 0230. NO NEW CONCERNS
--- NOTE | 2022-06-16 08:11 | NUR ---
AUTO BODY TECHNICIAN, CHEST TUBE ASSESSMENT COMPLETED. PATIENT ALERT/ORIENTED, ABLE TO CONVERSE APPROPRIATELY, FOLLOW COMMANDS, AND MOVE IN BED WITHOUT DIFFICULTY. CHEST TUBE ASSESSMENT NOTED TO BE WET, WILL CHANGE DRESSING ONCE PATIENT FINISHED EATING. BLODD SUGAR CHECK WAS 68, PATIENT GIVEN ORANGE JUICE WITH BREAKFAST. WILL RECHECK AFTER. PATIENT OTHERWISE CALM AND DENIES ANY FURTHER NEEDS. PERSONAL ITEMS AND CALL LIGHT WITHIN REACH.
[2022-06-16] MEDS ORDERED: CITALOPRAM HBR20 MG PO (09:00)
--- NOTE | 2022-06-16 09:15 | NUR ---
Updated Dr. Vasquez regarding low blood pressure and not giving Aldactone. Holding for now. Also, spoke about need for dressing change. RN to change dressing.
--- NOTE | 2022-06-16 09:24 | NUR ---
Medications reconciled using pharmacy records and patient interviews. Patient is using his own glargine insulin pen.
--- NOTE | 2022-06-16 10:01 | NUR ---
Chest xray completed. Dressing change completed. Patient able to assist with dressing change by sitting on the edge of the bed and reposition body for change. Skin in tact around insertion site, mildy irritated by tape. Good drainage from chest tube during movement. No distress noted from patient during change. Patient returned to supine position with personal items and call light within reach. Patient denies any further needs at this time. Will continue to monitor for insertion point drainage. Gown change also completed at this time.
--- NOTE | 2022-06-16 12:05 | NUR ---
Patient resting in bed. Patient has requested pain medication which will be given when available. Pain rating 6/10. Patient encouraged to eat lunch since he was given long acting insulin. At this time, patient wants to take a nap, but will eat afterwards. Patient denies any needs at this time. Personal items and call light within reach.
--- NOTE | 2022-06-16 14:04 | OR ---
[facility] [address] [place], [place] [address] Signed DATE OF OPERATION: 06/15/2022 SURGEON: Daisy Sarah MD PREOPERATIVE DIAGNOSES: Extensive subcutaneous emphysema and left-sided pneumothorax with basilar probable hemothorax. POSTOPERATIVE DIAGNOSES: Extensive subcutaneous emphysema and left-sided pneumothorax with basilar probable hemothorax. PROCEDURE: Placement of left 32-Citizen [place] chest tube. ANESTHESIA: Intravenous sedation (fentanyl 100 mcg, Versed 4 mg) and local anesthetic 1% lidocaine. INDICATION: This 46-year-old large white man suffered a fall 4 days ago on a walking stick and causing a blunt impalement injury to his left chest with rib fracture x1 and development of extensive subcutaneous emphysema of the neck, chest wall and so on. A CT scan was performed which confirmed a left-sided pneumothorax and probable basilar hemothorax. I have recommended a chest tube to be placed as he may well have an air leak contributing to ongoing development of subcutaneous emphysema. The risks of bleeding, infection, failure to cure the problem, and other unforeseen complications were reviewed in detail. He understands and wished to proceed. FINDINGS: Pleural space was entered without too much problem of the subcutaneous space of the chest wall was rather deep compared to usual. The tube showed good fluctuation once placed and postprocedure chest x-ray shows it directed over the mid lung field anteriorly. There was no sign of ongoing air leak at this time. DESCRIPTION OF PROCEDURE: He was placed in a semirecumbent position with the left arm elevated. The left chest wall was prepared with a chlorhexidine solution and draped sterilely. Intravenous sedation was induced with full cardiopulmonary monitoring including fentanyl 100 mcg and Versed 4 mg. A transverse injection of lidocaine 1% was injected inferior and lateral to the left nipple. A transverse incision was made with a 10 blade. Dissection carried Electronically Signed By: DAISY SARAH MD 06/16/22 1404 PATIENT NAME: STERLING QUIJANO OPERATIVE REPORT DATE OF : 73 REPORT #: [id number] PHYSICIAN: DAISY SARAH MD PCP: JOSE MATA MD REPORT IS CONFIDENTIAL AND NOT TO BE RELEASED WITHOUT AUTHORIZATION [facility] [address] [place], [place] [address] Signed through the subcutaneous with blunt and sharp dissection. Approximately, 6th rib was identified and additional local anesthetic injected. Using a Brooklynn clamp, dissection was begun over the rib, ultimately allowing for penetration of the pleural space. Digital examination showed the pleural space to be free of adhesions. A 32-Citizen [place] chest tube was insinuated into the pleural space and directed to the path of least resistance to about 12 cm. The chest tube was attached to an atrium Pleur-evac type device and attached to suction. The tube was secured to the skin with 2-0 nylon suture. Additional dressing was applied around the operative site and the tube was secured to the abdominal wall with a pedicled pink tape approach and sterile dressing applied to the puncture site as was silk tape. A postprocedure chest x-ray showed the chest tube to be directed transversely and anteriorly. There was no obvious pneumothorax on the plain chest x-ray. The patient appears to have no ongoing air leak, but there was good fluctuation in the tube indicative of reasonable placement. Daisy Sarah MD JM/MODL /[id number] cc: [facility] Copies: ~ Electronically Signed By: DAISY SARAH MD 06/16/22 1404 PATIENT NAME: STERLING QUIJANO OPERATIVE REPORT DATE OF : 73 REPORT #: [id number] PHYSICIAN: DAISY SARAH MD PCP: JOSE MATA MD REPORT IS CONFIDENTIAL AND NOT TO BE RELEASED WITHOUT AUTHORIZATION
--- NOTE | 2022-06-16 14:04 | HP ---
[facility] [address] [place], [place] [address] Signed ADMISSION DATE: 06/15/2022 REASON FOR ADMISSION: Left rib fracture with resultant hemopneumothorax and extensive subcutaneous air, status post placement of left chest tube. HISTORY OF PRESENT ILLNESS: This 46-year-old white man is considered disabled in part related to diabetes and peripheral neuropathy of his lower extremities. Four days ago (), he was walking and fell on his walking stick which bluntly impaled his left lateral chest wall. This was quite uncomfortable, but not associated with trouble breathing. Yesterday, he became quite a bit more sore and by the day noted fullness of his soft tissues of his neck and left chest wall. He presented to the emergency room where he was evaluated by Dr. Kosta Lentz. An EKG was performed which showed nonspecific T-wave abnormality and a chest x-ray was performed, which showed extensive left greater than right neck and chest soft tissue emphysema with no clear evidence of pneumothorax and a left basilar opacification. He had no evidence of tension pneumothorax. A CT scan was subsequently performed, which showed extensive subcutaneous emphysema of the chest wall, neck and so forth as well as a pneumothorax on the left and probable basilar loculated hemothorax with some atelectatic change of the left lower lobe. A rib fracture was identified as well. The patient notes a fullness of his neck and does not have overt dyspnea at this time. PAST MEDICAL HISTORY: Negative for chronic anticoagulation; the patient does have diabetes and significant peripheral neuropathy of the lower extremities. HOME MEDICATIONS: Include vitamin D3, gabapentin, insulin, metformin, omeprazole, spironolactone, and trazodone. LABORATORY DATA: At presentation show normal CBC except for hematocrit of only 33.1 with platelets of 224,000. Coag studies show an INR of 1.39. Chem profile essentially normal, though bicarb was low at 16, glucose elevated at 367, and liver enzymes somewhat elevated including alkaline phosphatase of 323. Other liver enzymes essentially normal, though AST is elevated at 71. Lipase was 33. Serology showed no evidence of coronavirus. Upon consultation, left chest tube was promptly placed by me, which showed no sign of Electronically Signed By: DAISY SARAH MD 06/16/22 1404 PATIENT NAME: STERLING QUIJANO HISTORY AND PHYSICAL DATE OF : 73 REPORT #: [id number] PHYSICIAN: DAISY SARAH MD PCP: JOSE MATA MD REPORT IS CONFIDENTIAL AND NOT TO BE RELEASED WITHOUT AUTHORIZATION [facility] [address] [place], [place] [address] Signed ongoing air leak particularly. The chest x-ray showed the chest tube directed over the left mid lung field from a medial to lateral position, likely anterior to the lung in its position. A separate dictation describes operative note at time of placement of the tube by me. REVIEW OF SYSTEMS: He denies any abdominal pain or head or neck pain. He does have some chest wall pain on the left side related to his original injury. He has poor sensation of his lower extremities he notes. PHYSICAL EXAMINATION: GENERAL: This is a very large white man, who does not look systemically toxic nor dyspneic. He has full fullness of his neck at the base with crepitus noted. Additionally, significant crepitus of the left chest wall including the pectoralis and posterior lateral chest wall is also noted. There is minimal amount on the right side. He has no overt dyspnea. His voice is somewhat higher pitched and would be expected, possibly a testimony to his extensive subcutaneous emphysema including perilaryngeal areas. ABDOMEN: Soft and nontender. EXTREMITIES: Show no clubbing, cyanosis, or edema. Chest x-ray and CT scan were reviewed prior to chest tube placement. ASSESSMENT: The patient has suffered a left-sided rib fracture with subsequent pneumothorax and probably loculated hematoma of the base of the lung. A chest tube has been placed and small amount of air has been removed. There is no sign of ongoing air leak per se. The extent of his subcutaneous emphysema would imply an air leak related to the rib fracture and presumably punctured lung. A chest tube is placed in the pleural space and respiratory variations noted on the chest tube. It is on 20 mmHg suction. He will be admitted for additional observation, oxygen therapy, and continued use of the chest tube. His diabetes will be managed appropriately and pain control administered as appropriate. Given possible loculated nature of the basilar fluid, he may ultimately require thoracoscopy with evacuation of clot if that is in fact the issue. Electronically Signed By: DAISY SARAH MD 06/16/22 1404 PATIENT NAME: STERLING QUIJANO HISTORY AND PHYSICAL DATE OF : 73 REPORT #: [id number] PHYSICIAN: DAISY SARAH MD PCP: JOSE MATA MD REPORT IS CONFIDENTIAL AND NOT TO BE RELEASED WITHOUT AUTHORIZATION [address] [address] Signed Daisy Sarah MD JM/MODL /[id number] cc: [facility] Copies: ~ Electronically Signed By: DAISY SARAH MD 06/16/22 1404 PATIENT NAME: STERLING QUIJANO HISTORY AND PHYSICAL DATE OF : 73 REPORT #: [id number] PHYSICIAN: DAISY SARAH MD PCP: JOSE MATA MD REPORT IS CONFIDENTIAL AND NOT TO BE RELEASED WITHOUT AUTHORIZATION
--- NOTE | 2022-06-16 14:36 | NUR ---
Patient resting comfortably in bed. Patient states pain is much better after PRN meds given. Patient has yet to urinate, but states he will do this soon. Asked for another cup of ice water to help which was given. Home meds added to record and given. Patient denies any further needs at this time. Personal items and call light within reach. Chest tube dressing C,D,I.
--- NOTE | 2022-06-16 15:57 | NUR ---
Bladder scan completed post urination of only 175 ml tea colored urine. 33 ml via bladder scanner. Dr. Vasquez updated regarding decreased urine output. 1L LR bolus started. Patient also educated that he would be moving to the bedside chair for dinner to which he agreed. seam rubbing machine operator also completed.
--- NOTE | 2022-06-16 17:00 | NUR ---
Patient able to stand with FWW and moved to bedside chair for dinner. Patient was able to stand without assistance and ambulate approximately 4 feet to bedside chair and sit without assistance. RN at side for cord and chest tube control. Patient states pain is under control and does not require any medications at this time. Patient eating dinner in bedside chair. Denies any needs at this time. Bed linens changed. Personal items and call light within reach.
--- NOTE | 2022-06-16 18:09 | NUR ---
Patient currently sitting in chair watching tv. Patient has been able to sit at edge of bed as well as ambulate to the bedside chair with FWW and +1 assist for cord management. Appetite has improved throughout the day; however, urine output remains low, Dr. Vasquez aware. Chest tube has good serosang output.
--- NOTE | 2022-06-16 19:18 | NUR ---
REPORT FROM NICOLA Riddle RN, PT STABLE DRESSING CHANGED THIS AM, PT JUST BACK TO BED FROM RECLINER HAS BEEN UP AND MOVING REGULAR TODAY. SIGNIFICANT AMOUT OF DRAINAGE OUT TODAY 275ML TOTOAL, BOLUS ORDERED FOR LOW URINE OUT, MONITOR FOR EFFECT.
--- NOTE | 2022-06-16 19:47 | NUR ---
PT RESTING IN BED SITTING UP WATCHING TV, HE REPORTS PAIN 5/10 AT REST, PT ADMINISTERED TWO TABS PERCOCET PRN, HE WANTS TO WAIT UNTIL 2300 FOR TRAZADONE FOR SLEEP PER IS NORMAL. NO NEW CONCERNS, NO AIR LEAKS NOTED IN WATER SEAL CHAMBER. CHEST TUBE DRESSING IS INTACT. PT BEDSIDE ACCU CHECK 83 WITH DINNER AT BEDSIDE, PT REPORTS HE IS GOING TO EAT. WILL MONITOR AND RECHECK BLOOD SUGAR. PT IS ALERT AND ORIENTED, NO RESP. DISTRESS NOTED.
--- NOTE | 2022-06-16 21:10 | NUR ---
PT VOIDED 225ML OF URINE IN URINAL, MEDIUM YELLOW (COLOR IMPROVED) PT HAS NO FURTHER NEEDS AT THIS TIME.
--- NOTE | 2022-06-16 23:15 | NUR ---
PT VOIDED 425ML IN URINAL YELLOW. FRESH ICE WATER PROVIDED, PT HAS NO OTHER CONCERNS OR NEEDS AT THIS TIME
--- NOTE | 2022-06-17 00:48 | NUR ---
PT RESTING IN BED, EYES CLOSED RESP REGULAR AT 15 BREATHS/MIN, NO DISTRESS NOTED, PT NOTED TO HAVE APNIC PERIODS APPROX. 1-2 SECONDS IN WHICH HIS OXYGEN DESATURATES AND THEN RECOVERS IN THIS TIME, HE WILL DESATURATE TO 85% THEN RECOVER TO 99% ON 2L OXYGEN N.C.
--- NOTE | 2022-06-17 01:35 | NUR ---
PT REPORTS PAIN 01/22, TWO TABS PERCOCET ADMINISTERED PRN, ALSO CHECKED BLOOD GLUCOSE PRN AT THIS TIME FOR 67, GAVE PT ENSURE AND CHOCOLATE PUDDING, HE AGREES TO EAT AND DRINK ALL, WILL RECHECK AT 0300 PROVIDED HE FINISHES 100% OF CARBS PROVIDED.
--- NOTE | 2022-06-17 03:08 | NUR ---
PT RESTING QUIETLY IN BED EYES CLOSED, THIS RN INTO ROUND, RECHECK BLOOD SUGAR 125 AT THIS TIME, ASSESS CHEST TUBE CONTAINMENT AND DRESSING ALL WNL, NO SIGNIFICANT NEW DRAINAGE, NO AIR LEAK IN WATER SEAL CHAMBER
--- NOTE | 2022-06-17 03:41 | NUR ---
PT SAT UP TO BEDSIDE TO USE URINAL, HE VOIDED 450ML URINE CLEAR YELLOW, HE TOLERATING ACTIVITY WELL, PT BACK TO BED, NO LEAK ON ASSESSMENT OF WATER SEAL CHAMBER.
--- NOTE | 2022-06-17 06:03 | NUR ---
DRAINAGE FROM CHEST TUBE 275ML OVER LAST 12 HOURS. PT IS RESTING IN BED QUIETLY, NO AIR LEAKS IN WATER SEAL CHAMBER OF CHEST TUBE CANISTER, PT DEMONSTRATES SYMPTOMS OF SLEEP APNEA WHILE SLEEPING, OCCASIONALLY DESATURATION NOTED TO 85% FOR 1-2 SECONDS THEN REBOUNDS TO 95-99% ON 2L N.C.
--- NOTE | 2022-06-17 07:57 | NUR ---
tiller worker and scheduled medications given. Patient awake, cooperative, alert, able to follow directions and carry appropriate conversation. Lung rod are slightly more clear compared to yesterday. Crepitis still present in BL neck, left and right chest. Right chest has less crepitis compared to yesterday as well. Crepitis extends to top of left shoulder. Crepitis still present on left back from scalpula to lower back. Patient given PRN pain meds for pain 7/10 in abdomen/lower back. Patient denies any further needs. Personal items and call light within reach.
--- NOTE | 2022-06-17 09:00 | NUR ---
INTO TO ROOM TO COMPLETE ASSESSMENT. PATIENT SITTING UP IN BED ON HIS CELL PHONE. PATIENT STATES HE IS CURRENTLY LIVING AT HOME WITH HIS MOTHER THERESA. NOTED TO BE 2 STEPS WITH A HAND RAIL INTO THE HOME. PATIENT CURRENTLY USES A WALKING STICK TO ASSIST WITH MOBILITY, BUT ALSO HAS A WALKER AT HOME. PATIENT STATES HE ALSO HAS A SHOWER CHAIR. NO FINANCIAL NEEDS INDEICATED BY THE PATIENT. DEMOGRAPHIC, PCP AND INSURANCE INFORMATION VERIFIED WITH PATIENT. PATIENT REQUEST ORDER FOR NEW WALKER AT DISCHARGE HE FEELS IT IS TOO SHORT AND IT IS BENT. WILL COMMUNICATE NEEDS WITH MD.
--- NOTE | 2022-06-17 09:19 | NUR ---
Contacted Dr. Vasquez and left a voice message letting him know the Aldactone was held this morning due to lower blood pressure. Case management in room with patient. Per patient, he needs a new walker at home. CM to work on this for patient.
--- NOTE | 2022-06-17 10:00 | NUR ---
Dr. Vasquez at bedside. Per patient, right ear sounds different. Per Dr. Vasquez, crepitis noted to right cheeck and neck and should dissipate on its own over time. Patient to be downgraded to MS and moved today when able. Patient has yet to void during shift, but he states he feels close to needing to urinate. Patient denies any needs at this time. Personal items and call light within reach.
--- NOTE | 2022-06-17 12:06 | NUR ---
Patient sitting in bed watching tv. Patient encouraged to get out of bed and get into bedside chair. patient stated he would do so after he eats. Patient also agreed to ambulate in the room and possibly the hallway. raw juice weigher completed and BSC done. Patient denies needs at this time. Personal items and call light within reach.
--- NOTE | 2022-06-17 14:13 | NUR ---
PATIENT TO EDGE OF BED FOR URINATION. THEN UP TO BEDSIDE CHAIR FOR CHANGE IN POSITION. PATIENT ABLE TO STAND AND AMBULATE USING FWW AND +1 PERSON ASSIST FOR TUBE AND LINE CONTROL. PATIENT DENIES NEEDS AT THIS TIME. PERSONAL ITEMS AND CALL LIGHT WITHIN REACH.
--- NOTE | 2022-06-17 14:31 | NUR ---
KNOCKED ON PTS' DOOR-HE DID NOT AWAKE. DID NOT DISTURB. WILL FOLLOW
--- NOTE | 2022-06-17 16:13 | NUR ---
PATIENT SITTING IN BEDSIDE CHAIR WATCHING TV. PATIENT STATES PAIN IS UNDER CONTROL WITH PRN MEDS. PATIENT STATED HE WILL ATTEMPT TO AMBULATE IN ROOM BEFORE DINNER. METAL MOLDER COMPELTED. PATIENT DENIES ANY NEEDS AT THIS TIME. PERSONAL ITEMS AND CALL LIGHT WITHIN REACH.
--- NOTE | 2022-06-17 18:01 | NUR ---
Patient has not been as active today; but he has been able to sit at the edge of the bed, sit in bedside chair, and then return to the bed. Patient states his knees are the issue and it is difficult to get up at times. Patient also stated he noticed he was getting weaker from laying in bed these last few days. Cepitis continues to get better; however, facial crepitis noted today when patient stated his right ear was bothering him (Dr. Vasquez aware). Will continue to encourage patient to ambulate. Patient urine output also still low and christiano in color.
--- NOTE | 2022-06-17 20:30 | NUR ---
PT RESTING IN BED ALERT AND ORIENTED, NO DISTRESS NOTED, PHYSICAL ASSESSMENT COMPLETE, PT CONTINUES TO HAVE CREPITUS FROM SUBQ EMPHYSEMA, IMPROVING. NO AIR LEAK NOTED AT CHEST TUBE WATER SEAL CHAMBER. PT ACCU CHECK 66, PT AGREE TO EAT LUNCH BOX SANDWHICH AND CLEAR ENSURE DRINK WILL RECHECK AND MONITOR CLOSE OVER SHIFT. NO OTHER NEW COCNERNS AT THIS TIME.
--- NOTE | 2022-06-17 22:05 | NUR ---
BLOOD SUGAR RECHECK 107 AT THIS TIME. NO AIR LEAKS AT WATER SEAL CHAMBER OF CHEST TUBE, NO NEW DRAINAGE. PT ALERT AND ORIENTED ATEMPTING TO USE URINAL TO VOID AT THIS TIME.
--- NOTE | 2022-06-18 00:05 | NUR ---
PT RESTING IN BED EYES CLOSED RESP REGULAR AT 17 BPM. NO RESTLESSNESS, OR GRIMACE. V/S STABLE.
--- NOTE | 2022-06-18 02:30 | NUR ---
PT UP TO SIDE OF BED TO USE URINAL, REPORTS PAIN 6/10 WITH ACTIVITY, TWO TABS PERCOCET PRN ADMINISTERED. RECHECKED BLOOD SUGAR AT BEDSIDE ACCUCHECK READS 135. ASSESSMENT OF CHEST TUBE DRESSING INTAKE NO NEW DRAINAGE ON DRESSING, CHEST TUBE CANISTER ASSESSMENT NO AIR LEAKS IN WATER SEAL CHAMBER, SUMEET EXPANDED, CHEST TUBE TO WALL SUCTION. PT NOT IN ANY RESP DISTRESS, NO NEW CONCERNS AT THIS TIME. PT VOIDED 450ML SLIGHTLY COUDY YELLOW URINE.
--- NOTE | 2022-06-18 05:26 | NUR ---
PT CALLED NURSES STATION, ASKED ABOUT BREAKFAST, PT IS MILDLY CONFUSED ABOUT TIME UPON WAKING, HE REORIENTED QUICKLY, CHEST TUBE ASSESSMENT WNL, NO AIR LEAKS, NO RESPIRATORY DISTRESS. 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
--- NOTE | 2022-06-18 07:30 | NUR ---
PT A/O, RESPRIATIONS EVEN AND REGULAR. BG 54, PT IS ASYMPTOMATIC. GIVEN JUICE AND JELLO. CHEST TUBE TO WALL SUCTION, DRAINING SEROSANUINOUS DRAINAGE. CREPITUS ANTERIOR AND POSTERIOR IMPROVING. IV FLUIDS RUNNING. CALL LIGHT WITHIN REACH.
--- NOTE | 2022-06-18 08:10 | NUR ---
PT ASSESSMENT AND MEDICATION ADMINISTRATION COMPLETED. PT BG CHECKED BG 103. PT UP TO BEDSIDE COMMODE WITH ONE PERSON STANDBY ASSIST AND WALKER. PT HAD LARGE BM. PT HAD LG BM. TRANSFERRED TO CHAIR FOR BREAKFAST.
--- NOTE | 2022-06-18 08:20 | NUR ---
Spoke with Carlitos. He states he cont. to live with his mom. States he was sober for a short time 3 months ago. Cont. to drink beer. Does not want to speak with KERLINE. Plans on dc to home with mom when he his cleared medically for his pneumo. Wants me to know he did not fall due to drinking. He is currently on 02. If he cont. to need on Dc, he would like to get through [facility].
--- NOTE | 2022-06-18 10:09 | NUR ---
TO PT ROOM FOR MEDICATION ADMINISTRATION. BG CHECKED 207. LONG ACTING INSULIN SELF ADMINISTERED. PT IS A/O, RESPIRATIONS EVEN AND REGULAR. REMAINS ON 2L NC. CHEST TUBE DRAINING SEROSANGUINOUS DRAINAGE. TUBE IS PATENT. IV FLUIDS RUNNING. RATES PAIN 5/10.
--- NOTE | 2022-06-18 10:25 | NUR ---
REPORT RECEIVED FROM DARRYL PETERSEN. AWAITING PTS ARRIVAL TO MED/SURG.
--- NOTE | 2022-06-18 10:58 | NUR ---
PT ARRIVED FROM CCU BY CHAIR. PT REPRORTS HE FELT "A LITTLE DIZZY WHILE GETTING UP TO THE CHAIR." PT DENEIS DIZZINESS AT THIS TIME. BLOOD PRESSURE NOTED TO BE 83/55. NOTED THAT PT HAS BEEN HAVING LOW BLOOD PRESSURES. PT REPORTS 5/10 PAIN STATING THE PAIN MEDICATION IS HELPING AND THAT HE DOES NOT NEED ADDITONAL PAIN MEDICATION. PT REPORTS PAIN MEDICATION HAS BEEN MAKING HIM "ITCHY" AND REQUESTS BENADRYL, SEE MAR FOR MEDICATION GIVEN. PT ARRIVED WITH IV SALINE LOCKED, IV FLUIDS RESTARTED. PT ALERT AND ORIENTED TO ALL. HEART TONES REGULAR, PT MILDY TACHYCARDIC WITH HR 100-110. LUNG SOUNDS CLEAR THROUGHOUT BUT DEMINISHED IN LOWER LOBES AND MORE DEMINISHED ON LEFT SIDE THAN RIGHT. WORK OF BREATHING WNL. CHEST TUBE IN PLACE WITH BILLOWS EXPANDED TO THE DELTA ARI ADN CHEST TUBE ATTACHED TO WALL SUCTION AT 65MMHG. CHEST TUBE CHAMBER SET AT SUCTION PRESSURE OF -20CM. BALL IN WATER SEAL CHAMBER FLUCUATES WITH DEEP BREATHING, AIR LEAK NOTED TO +1 WITH DEEP BREATHING AND COUGH. SEROUSANGUINOUS FLUID NOTED IN COLLECTION CHAMBER. DRESSING C/D/I. OXYGEN SATURATION AT 96% ON ROOM AIR. PT REMAINS ON 2L O2 BY NC PER MD ORDER FOR LUNG EXPANSION. OXGYGEN SATRATION OF 97-99% ON 2L O2 BY NC. CPOX IN PLACE. CREPITUS PRESENT THROUGH LEFT SIDE OF CHEST WALL FROM NIPPLE LINE UP THROUGH NEC AND BILATERAL CHEST CREPITUS ALSO NOTED ON RIGHT CHES FROM ~2INCHES BELOW COLLAR BONE. CREPITIS PRESENT IN UPPER LEFT BACK WELL. PTS VOICE IMPROVING. NEROPATHY IN BLE PER PTS BASELINE. PT REMAINSUP TO CHAIR. TALKING WITH FRIEND ON THE PHONE. NO ADDITIONAL NEEDS AT THIS TIME. CALL LIGHT WIHTIN REACH. BL CHEEKS
--- NOTE | 2022-06-18 11:52 | NUR ---
DR SARAH UPDATED ON PT STATUS, STATES OK FOR PT TO SHOWER. PT UPDATED REGARDING REQUEST. NO ADDITIONAL NEEDS AT THIS TIME.
--- NOTE | 2022-06-18 12:06 | NUR ---
MEDICATION DUE. PT ENCOUGED TO EAT LUNCH. INUSLIN GIVEN. PT WATCHIGN FISHING SHOW ON HIS PHONE. NO ADDITIONAL REQUESTS OR COMPLAINTS. CALL ROSSI GARDNER.
--- NOTE | 2022-06-18 14:17 | NUR ---
AFTERNOON ASSESSMENT AND MEDICATION DUE. PT REMAINS UP TO CHAIR. PT REPORTS FEELING REALLY TIRED AND PAINFUL WITH DEEP BREATHING. PT REQUESTS PAIN MEDICATION AND TO GET BACK TO BED TO REST. PT ALERT AND OREINTED TO ALL. PT REPORTS 6/10 PAIN IN LEFT CHEST WALL AND WITH DEEP BREATHING. SEE MAR FOR MEDICATION GIVEN. HEAT PACK ALSO PROVIDED. STAND BY ASSIST WITH FWW BACK TO BED. PT REPORTS FEELING THAT HIS CALVES ARE VERY WEEK, WILL CONSULT MD REGARDING POSSIBLE PHYSICAL THERAPY ORDER. LUNG SOUNDS CLEAR THROUGHOUT BUT DEMINISHED IN LOWER LOBES AND MORE DEMINISHED ON LEFT SIDE THAN RIGHT. WORK OF BREATHING WNL. CHEST TUBE IN PLACE WITH BILLOWS EXPANDED TO THE DELTA ARI ADN CHEST TUBE ATTACHED TO WALL SUCTION AT 65MMHG. CHEST TUBE CHAMBER SET AT SUCTION PRESSURE OF -20CM. BALL IN WATER SEAL CHAMBER FLUCUATES WITH DEEP BREATHING, AIR LEAK NOTED TO +1 WITH DEEP BREATHING AND COUGH. SEROUSANGUINOUS FLUID NOTED IN COLLECTION CHAMBER. DRESSING C/D/I. PT REMAINS ON 2L O2 BY NC PER MD ORDER FOR LUNG EXPANSION. OXGYGEN SATRATION OF 97-99% ON 2L O2 BY NC. CPOX IN PLACE. CREPITUS PRESENT THROUGH LEFT SIDE OF CHEST WALL FROM NIPPLE LINE UP THROUGH NEC AND BILATERAL CHEST CREPITUS ALSO NOTED ON RIGHT CHES FROM ~2INCHES BELOW COLLAR BONE. CREPITIS PRESENT IN UPPER LEFT BACK WELL. PT TAUGHT TO FEEL THE CREPITUS UNDER HIS OWN SKIN WHICH HE DEMONSTARTES UNDERSTANDING OF. PT REMAINS MILDY TACHYCARDIC. BLOOD PRESSURE IMPROVIED. NOTED THAT PT HAS NOT VOIDED SINCE TRANSFER FROM CCU. PO FLUIDS ENCORUAGED. ICE WATER REFILLED. PT DEMONSTRATES USE OF I.S REACHIGN 2500ML X3. +1 AIR LEAK NOTED WITH DEEP BREATHING AND I.S. USE. ASSESSMENT OTHERWISE UNCHANGED. PT RESTING INB ED WITH HEAD OF BED ELEVATED TO 24 DEGREES. NO ADDITIONAL NEEDS AT THIS TIME. CALL LIGHT WITHIN REACH. BED RAILS UP.
--- NOTE | 2022-06-18 14:35 | NUR ---
PT TRANSFERED FROM CCU THIS SHIFT FOR LEFT RIB FRACTURE AND HEMOPNEUMOTHROAX. PT UP TO CHAIR WITH 1 PERSON ASSIST AND FWW. PT TOLERATING 60G CARB DIET. BLOOD SUGAR CHECKS WITH MEALS AND HS WITH LONG ACTING AND SLIDING SCALE INSULIN GIVEN. CHEST TUBE REMAINS IN PLACE, FUNCTION WNL, WITH +1 AIR LEAK DURING DEEP BREATHING AND SEROUSANGUINOUS DRAINAGE NOTED IN COLLECTION CANISTER. I.S. PROVIDED AND USE ENSURED. CHEST TUBE TO -20CM SUCTION WITH WALL SUCTION IN PLACE. DRESSING REMAINS C/D/I. BLOOD PRESSURES LOW THIS SHIFT. PT MILDY TACHYCARDIC THROUGHOUT SHIFT. IV FLUIDS CONTINUE. CREPITUS THROUGHOUT UPPER CHEST, NECK AND FACIAL CHEEKS CONTINUE, IMPROVING. EDEMA TO BLE WORSENTING, NOW +2. PRN PAIN MEDICATIONS GIVEN FOR LEFT CHEST WALL PAIN. PT NOT VOIDING QUANTITY SUFFICIENT, MONITORING WITH PO FLUIDS ENCOURAGED. PT USES CALL LIGHT AND MAKES NEEDS KNOWN.
--- NOTE | 2022-06-18 15:06 | NUR ---
THIS RN TO ROOM TO CHECK ON PT. PT RESTING IN BED WITH EYES CLOSED. RESPIRATIONS EVEN AND UNLABORED. OXGYEN SATURATION 99% ON 2L O2 BY NC. PT ALLOWED TO REST. CALL LIGHT WIHTIN REACH. BED RAILS UP.
--- NOTE | 2022-06-18 16:02 | NUR ---
THIS RN TO ROOM TO CHECK ON PT. PT RESTING WITH EYES CLOSED. MILD SNORING NOTED. OXGYEN SATRUATION OF 94% ON 2L O2 BY NC. RESPIRATIONS UNLABORED. CALL LIGHT WITHIN REACH. BED RAILS UP. PT ALLOWED TO REST.
--- NOTE | 2022-06-18 16:46 | NUR ---
THIS RN TO ROOM WITH DR. SARAH FOR ROUNDS. PT AWAKE AND WORKING WITH MID LEVEL JAVA DEVELOPER. DR SARAH UPDATED REGARDING PTS HEART RATE, BLOOD PRESSURE, URINE OUTPUT AND REQUEST FOR PHYSICAL THERAPY. NEW ORDERS PLACED. PT REPORTS HE FEELS THAT HE WILL NEED TO VOID SOON. ICE WATER REFILLED. PT REPORTS TAKING A NAP "HELPED." PT REPORTS 5/10 PAIN IN LEFT CHEST WALL THAT IS WELL CONTROLLED. PT ENCOURAGED TO GET UP TO CHAIR. PT DECLINES AT THIS TIME BUT STATES HE WOULD LIKE TO WALK LATER THIS SHIFT. NO ADDITIONAL REQUESTS OR COMPLAINTS. CALL LIGHT WITHIN REACH. BED RAILS UP.
--- NOTE | 2022-06-18 17:45 | NUR ---
THIS RN TO ROOM TO CHECK ON PT. PT SITTING UP IN BED EATING DINNER. OXGEYN SATURATIONS OF 97-100% ON 2L O2 BY NC. PT IV FLUSHED AND SALINE LOCKED PER MD ORDER. ALCOHOL CAP APPLIED. PT HAS BEEN ABLE TO VOID 250ML YELLOW URINE. PT DENIES ADDIITONAL REQUESTS OR COMPLAINTS. CALL LIGHT WITHIN REACH. BED RAILS UP. ORACLE SQL DEVELOPER AT BEDSIDE WORKING WITH PT.
--- NOTE | 2022-06-18 18:40 | NUR ---
THIS RN TO ROOM TO CHECK ON PT. PT RESTING IN BED WATCHING TV. PT REPORTS 4/10 LEFT SIDED CHEST WALL PAIN. PT DENIES NEED FOR ADDITIONAL PAIN MEDICAITON. PT DENIES [place]. 250ML SEROUS ANGUINOUS FLUID MARKED ON CHEST TUBE FOR THIS SHIFT. PT DENIES ADDITIONAL REQUESTS OR COMPLAINTS. CALL LIGHT WITHIN REACH. BED RAILS UP.
--- NOTE | 2022-06-18 19:10 | NUR ---
RECEIVED REPORT FROM JOSE ANDREWS. PT IS RESTING IN BED. CHEST TUBE IN PLACE W/SEROSANGUINOUS DRAINAGE TO SUCTION (20 MMHG). PT RESPIRATIONS ARE UNLABORED AND EVEN. CALL LIGHT WITHIN REACH, NO FURTHER NEEDS AT THIS TIME.
--- NOTE | 2022-06-18 22:33 | NUR ---
PERFORMED ASSESSMENT, FURNACE OPERATOR AND TENDER, AND ASSISTED PT W/AMBULATION TO BEDSIDE COMMODE. PT BS TAKEN AND 53, REPEATED AND FOUND TO BE 57. OJ W/SUGAR PROVIDE FOR PT. WILL REASSESS IN 15 MIN. PT IS NONSYMPTOMATIC. BP IS 80'S SYSTOLIC. CHEST TUBE UPRIGHT ON FLOOR W/-20 MMHG SUCTION. DRAINAGE IS SEROSANGUINOUS AND CHEST TUBE DRESSING IS C/D/I. PT REPORTS PAIN 6/10 ON LEFT SIDE OF CHEST. PRN PERCOCET GIVEN (SEE EMAR). PT IS ON NC W/02 SATS AT 96%, BREATHING IS UNLABORED, EVEN AND NO SOB EXPERIENCED PER PT. CREPITUS AND EDEMA PRESENT ON LEFT SIDE OF CHEST. PT HAD ALFRED BM AND REQUIRED 1PA TO BEDSIDE COMMODE. PT NOW RESTING IN BED, CALL LIGHT WITHIN REACH, WILL CONTINUE TO MONITOR.
--- NOTE | 2022-06-18 22:48 | NUR ---
BS TAKEN AFTER 15 MIN OF ORAL CARB INTAKE. IT IS 81. JUICE W/SUGAR PROVIDED. WILL RETAKE IN 1 HOUR. DILCIA CRACKERS ALSO PROVIDED. CALL LIGHT WITHIN REACH, NO FURTHER NEEDS AT THIS TIME.
--- NOTE | 2022-06-18 23:25 | NUR ---
ACCUCHECK RESULT OF 126 PER FASHION ADVISER JUAN, PRIMARY RN MERLINE AWARE AND UPDATED.
--- NOTE | 2022-06-19 03:17 | NUR ---
PT RESTING IN BED W/EYES CLOSED. BREATHING IS UNLABORED AND EVEN, NO SIGNS OF DISTRESS. CALL LIGHT WITHIN REACH, NO FURTHER NEEDS AT THIS TIME.
--- NOTE | 2022-06-19 04:03 | NUR ---
cpox alarming, this rn in room. pt somewhat disoriented to place, claims he is at home. pt given trazodone earlier in shift, prn accucheck done and result of 101. pt waking up and becoming more and more oriented, giving name/ and home address. spo2 low 90's on ra, 2lnc back in place and now sustaining in mid to upper 90's. primary rn andre now in room for assessment. dressing c/d/i.
--- NOTE | 2022-06-19 04:37 | NUR ---
IN ROOM FOR PT ASSESSMENT. PT REPORTS 7/10 BACK PAIN, PRN PERCOCET GIVEN (SEE EMAR). CHEST TUBE SITE DRESSING APPEARS C/D/I AND STANDING UPRIGHT AT END OF BED. CHEST DRAINAGE SYSTEM AT -20 cmH2O AND SEROSANGUINOUS DRAINAGE IN CHAMBER. PRESSURE FLOAT BALL IS AT +1 W/NO FLUCTUATION W/DEEP BREATHING/COUGHING. oRANGE BELLOW IS EXPANDED BEYOND THE DESIGNATED ARI. PT REPORTS NO NAUSEA, BUT CHRONIC NUMBNESS IN LOWER LEGS AND OCCASIONALLY FINGERTIPS. LUNG SOUNDS ARE CLEAR THROUGHOUT AND EDEMA REMAINS IN NECK AND LEFT SIDE OF CHEST, CREPITUS EXTENDING TO RT SIDE COLLAR BONE FROM LEFT SIDE WHERE ITS PREDOM LOCATED. CALL LIGHT WITHIN REACH, NO FURTHER NEEDS AT THIS TIME.
--- NOTE | 2022-06-19 05:49 | NUR ---
UNEVENTFUL NIGHT FOR PT. SLEPT THROUGH MOST OF THE NIGHT. NC AT 2L O2 W/CPOX. PT FOUND X2 W/OUT O2 IN PLACE, PT EDUCATED ABOUT 02 USE. CHEST TUBE DRESSING C/D/I. DRAINAGE SYSTEM FUNCTIONING WNL, SEROSANGUINOUS DRAINAGE, NO AIR LEAK, AND -20 cmH2O TO WALL SUCTIONING. PRN PAIN MEDS GIVEN X2, PRN SLEEP MED GIVEN X1. UO SUFFICIENT. VSS (BP SYSTOLIC SOFT BUT CHRONIC FOR LAST 4 MO PER PT). CHRONIC NUMBNESS PER PT BLE FROM NEUROPATHY. STANDBY ASSIST.
--- NOTE | 2022-06-19 07:47 | NUR ---
Blood sugar reported to be 73 per sustainment logistics analyst. Patient provided with orange juice and snack at this time. Patient awake, alert and oriented x4. Chest tube to cont wall suction, no notable air leak at this time. Patient denies sob and or chest pain, pt on 2L oxygen, sp02 99%. Call light within reach.
--- NOTE | 2022-06-19 09:04 | NUR ---
PATIENT UP TO COMMODE, LARGE SOFT BM. PATIENT INDICATED THAT HIS GOWN WAS WET, APPEARS THAT LEFT CHEST TUBE SITE HAS BEEN LEAKING SEROUS FLUID (TAPE IS DAMP).CHUX AND ABD PLACED BETWEEN PATIENT AND BED TO CATCH DRAINAGE. PRIMARY NURSE NOTIFIED.
--- NOTE | 2022-06-19 11:51 | NUR ---
PT UP TO CHAIR FOR BED BATH. PT COMPLETED BATH INDEPENDENTLY AFTER SETUP. CHANGED CLOTHES, ORAL CARE. THIS CNA2 CHANGED LINENS AFTER BATH. CALL LIGHT IN REACH.
--- NOTE | 2022-06-19 12:15 | NUR ---
Admin two tabs percocet 7.5/325mg po for reports of 7/10 left rib pain.
--- NOTE | 2022-06-19 13:22 | NUR ---
Patient sitting up eating at this time, no distress. Patient's chest tube intact/patent to water seal, no notable air leak. Chest tube drainage is sarosang, sp02 is 99% on 2L. Patient denies shortness of breath at this time. No needs at this time, personal supplies and call light within reach.
--- NOTE | 2022-06-19 15:13 | NUR ---
PT ALERT, ORIENTED AND ON PHONE IN BED.PT SAYS HE FEELS BETTER, LOOKING FORWARD TO GETTING DRAIN REMOVED. HE STATED I HAD NO IDEA BREAKING RIBS WOULD BE THIS PAINFUL. PT USING O2 NC. THANKED ME FOR VISITING. GAVE PT Francisco UGALDEPOST AND WILL FOLLOW
--- NOTE | 2022-06-19 15:56 | NUR ---
NO CHANGE IN DISCHARGE PLAN TODAY. CONTINUE TO FOLLOW.
--- NOTE | 2022-06-19 18:27 | NUR ---
Patient awake watching tv, no distress. Patient's chest tube intact/patent to water seal, no air leak noted. Patient remains on 2L oxygen per nc, no respiratory distress. Patient reports good pain control throughout this shift. Encouraged patient to call staff if he has needs. Personal supplies and call light within reach.
--- NOTE | 2022-06-19 19:10 | NUR ---
RECEIVED REPORT FROM SPIKE ANDREWS. PT IS AWAKE AND ALERT IN BED. CHEST TUBE IS WATER SEALED CHAMBER BALL AT LEVEL 8. BEDDING CHANGED DUE TO DRAINAGE FROM CHEST TUBE SITE OF SMALL AMOUNT. PER REPORT MD IS AWARE OF THIS DRAINAGE. DRESSING REINFORCED W/FOAM TAPE. NC AT 2L O2 W/O2 SATS AT 100%. CALL LIGHT WITHIN REACH, NO FURTHER NEEDS AT THIS TIME.
--- NOTE | 2022-06-19 19:11 | NUR ---
RECEIVED REPORT FROM SPIKE ANDREWS. PT IS AWAKE AND ALERT IN BED. CHEST TUBE IS TO WATER SEAL, PRESSURE FLOAT BALL RESTING AT 8 MARKER ON WATER SEAL CHAMBER. NO AIR LEAK DETECTED. BEDDING CHANGED DUE TO SEROUS DRAINAGE FROM CHEST TUBE SITE, SMALL AMOUNT. PER REPORT MD IS AWARE OF THIS DRAINAGE. DRESSING REINFORCED W/FOAM TAPE. NC AT 2L O2 W/O2 SATS AT 100%. CALL LIGHT WITHIN REACH, NO FURTHER NEEDS AT THIS TIME.
--- NOTE | 2022-06-19 20:15 | NUR ---
IN ROOM FOR PT ASSESSMENT, VS, I/O'S, FRAME FIXER. ASSISTED PT W/AMBULATION TO BATHROOM. 1 BM AND UNMEASURABLE VOID. DRAINAGE ON FLOOR IN BATHROOM. PT IS NOT SYMPTOMATIC (NO DIZZINESS, CHEST PAIN, DIFFICULTY BREATHING, O2 SATS 90'S). WATER SEAL BALL AT 8. DRAINAGE IS SEROSANGUINOUS. REINFORCED W/PINK FOAM TAPE. CHUCKS UNDERNEATH TUBE INSERTION SITE TO COLLECT DRAINAGE. -20 WATER SEAL CMH20. LUNGS ARE CLEAR THROUGHOUT. PT REPORTS PAIN AT 6/10 IN FRONT LOWER CHEST. PRN PERCOCET GIVEN (SEE EMAR). CPOX IN PLACE. BS WNL, EVENING SNACK PROVIDED AND AT BEDSIDE. CALL LIGHT WITHIN REACH, NO FURTHER NEEDS AT THIS TIME.
--- NOTE | 2022-06-19 20:16 | NUR ---
IN ROOM FOR PT ASSESSMENT, VS, I/O'S, CLAIMS VICE PRESIDENT. ASSISTED PT W/AMBULATION TO BATHROOM. 1 BM AND UNMEASURABLE VOID. SMALL AMOUNT OF SEROUS DRAINAGE ON FLOOR IN BATHROOM, FROM CHEST TUBE. PT IS NOT SYMPTOMATIC (NO DIZZINESS, CHEST PAIN, DIFFICULTY BREATHING, O2 SATS 90'S). CHEST TUBE TO WATER SEAL. DRAINAGE IS SEROUS TO LT SEROSANGUINOUS. REINFORCED W/ FOAM TAPE. CHUCKS UNDERNEATH TUBE INSERTION SITE TO COLLECT DRAINAGE. . LUNGS ARE CLEAR THROUGHOUT. PT REPORTS PAIN AT 6/10 IN FRONT LOWER CHEST. PRN PERCOCET GIVEN (SEE EMAR). CPOX IN PLACE. ACCUCHECK COLLECTED, INSULIN SLIDING SCALE GIVEN. EVENING SNACK PROVIDED AND AT BEDSIDE. CALL LIGHT WITHIN REACH, NO FURTHER NEEDS AT THIS TIME.
--- NOTE | 2022-06-19 23:00 | NUR ---
RETAIL LEASING AGENTDARRYL LINDSEY UPDATED AND AWARE OF LEAKING CHEST TUBE DURING SHIFT. pt HAS REMAINED ASYPTOMATIC-HAS DENIED SOB, CHEST PAIN, DYSPNEA, ECT. NO INCREASE IN O2 THERAPY.
--- NOTE | 2022-06-19 23:59 | NUR ---
sandwich box provided per pt request, no additional needs or concerns. 2lnc found off of pt, spo2 sustaining in upper 90's, 2lnc back in place. call light in reach.
--- NOTE | 2022-06-20 01:00 | NUR ---
PT RESTING IN ROOM EATING SANDWICH AND GRANOLA BAR. REQUESTS PRN TRAZADONE FOR SLEEP (SEE EMAR). PERFORMED BS CHECK DUE TO FREQUENT LOW BLOOD SUGARS AT NIGHT. BS WAS 64 W/FIRST READING, AND 61 W/SECOND READING. PT IS NOT SYMPTOMATIC. GRAPE JUICE W/2 SUGAR PACKETS PROVIDED. WILL CONTINUE TO MONITOR AND RETEST IN 15 MINUTES.
--- NOTE | 2022-06-20 01:20 | NUR ---
RETESTED PT BS AND READS 88. PT REMAINS UNSYMPTOMATIC. PT RESTING IN BED, CALL LIGHT WITHIN REACH. WILL RETEST IN 1 HOUR.
--- NOTE | 2022-06-20 02:20 | NUR ---
INTO CHECK BLOODGALLO, RN INFORMED, URINAL EMPTIED
--- NOTE | 2022-06-20 05:28 | NUR ---
IN PT ROOM FOR ALARMING CPOX. PT HAD REMOVED CPOX FROM FINGER AND REMOVED O2 IN SLEEP. REORIENTED PT TO LOCATION. ORIENTED TO TIME/DATE/SELF. REPLACED CPOX ON RT HAND, REPOSITIONED O2 ON HEAD AND EDUCATED PT ABOUT O2 USE AND CPOX. VSS. PERFORMED ASSESSMENT. NO ACUTE CHANGES FROM PREVIOUS ASSESSMENT. CHUCKS PAD REPLACED FOR SEROUS DRAINAGE OF MODERATE AMOUNT OVERNIGHT. PT IS NOT EXPERIENCING ANY SOB, CHEST PAIN, OR DIFFICULTY BREATHING. CHEST TUBE TO WATER SEAL, NO AIR LEAK, SEROUS-SEROSANGUINOUS DRAINAGE, FUNCTIONING WNL. MILD CREPITUS STILL PRESENT. CALL LIGHT WITHIN REACH, NO FURTHER NEEDS AT THIS TIME.
--- NOTE | 2022-06-20 06:36 | NUR ---
CPOX ALARMING. PT REMOVED MONITOR FROM FINGER, AND O2. REPLACED AND PT ORIENTED X4. EDUCATED PT ABOUT IMPORTANCE OF KEEPING O2 AND CPOX IN PLACE. PT STATED UNDERSTANDING. BEDSIDE URINAL EMPTIED AND RECORDED. CHEST TUBE IN PLACE TO WATER SEAL, FLOAT BALL NOW AT 6. DRESSING INTACT BUT SLIGHT SEROUS DRAINAGE ON CHUCKS PAD UNDERNEATH. PT IS NOT SYMPTOMATIC. CALL LIGHT IN REACH, NO FURTHER NEEDS AT THIS TIME.
--- NOTE | 2022-06-20 07:25 | NUR ---
UNEVENTFUL NIGHT FOR PT. SLEPT THROUGH MOST OF THE NIGHT. NC AT 2L O2 W/CPOX. CHEST TUBE DRESSING CLEAN & INTACT. REINFORCED W/WHITE TAPE, DRAINING OF SMALL SEROUS AMOUNTS (MD AWARE). DRAINAGE SYSTEM FUNCTIONING WNL, SEROSANGUINOUS DRAINAGE, NO AIR LEAK, CHEST TUBE TO WATER SEAL. MILD CREPITUS IN CHEST/NECK. PRN PAIN MEDS GIVEN X1, PRN SLEEP MED GIVEN X1. UO SUFFICIENT. VSS (BP SYSTOLIC SOFT BUT CHRONIC FOR LAST 4 MO PER PT). BS DROPPED TO 61, PROVIDED JUICE W/SUGAR. BS INCREASED TO 88 AFTER 15 MIN RETEST, AND TO 125 AFTER 1 HR RE-TEST. CHRONIC NUMBNESS PER PT BLE FROM NEUROPATHY. STANDBY ASSIST W/FWW. PT PULLED OFF CPOX AND O2 IN NIGHT, REPLACED AND PT EDUCATED. LIKELY TO DC CHEST TUBE THIS AM PER MD NOTE. NO LABS/IMAGING ORDERED.
--- NOTE | 2022-06-20 08:30 | NUR ---
Spoke with pt. He is wanting to go home, but unsure if will let him leave today. Chest tube remains in place. Discussed he probably won't leave with his CT in.
--- NOTE | 2022-06-20 10:15 | NUR ---
ASSISTED PT BACK TO BED FROM THE TOILET. PT STATED THAT HE FELT WEAK WHEN TRYING TO STAND, BUT TOLERATED WELL ONCE STANDING AND DURING AMBULATION. PT EXPERIENCED DRAINAGE FROM THE SITE WHILE TRYING TO HAVE A BOWEL MOVEMENT. REINFORCED THE DRESSING WITH PINK TAPE. PT ON 2 L O2 NASAL CANULA, 96% O2 SATURATION, BP OF 92/55, PULSE OF 105, AND RESPRIATIONS 18. PT RESTING IN BED.
--- NOTE | 2022-06-20 10:23 | NUR ---
Patient's chest tube dressing is leaking with serous drainage. Dressing reinforced at this time, chest tube patent with serous drainage noted in tubing. No air leak noted in water seal chamber. Patient denies shortness of breath and or chest pain. Patient remains on 2L oxygen per nc, respirations even and non labored. Pain reported to be improving at this time. Encouraged patient to call for help if he has needs, call light within reach. Dr. Lentz consulted this morning regrading drainage, he did see patient at bedside. Chest x-ray resulted, provider aware of results.
--- NOTE | 2022-06-20 13:23 | NUR ---
Patient up to the restroom at this time. Left chest tube dressing has serous drainage leaking out. Dressing reinforced at this time. Chest tube intact/patent with serous drainage noted in tubing. Patient denies shortness of breath and or chest pain. SP02 is 99% on 2L oxygen per nc, respirations non labored.
--- NOTE | 2022-06-20 15:00 | NUR ---
PT LAYING IN BED WATCHING TV. CALL LIGHT WITHIN REACH. NO FURTHER NEEDS AT THIS TIME.
--- NOTE | 2022-06-20 15:50 | NUR ---
No change in plan for dc today.
--- NOTE | 2022-06-20 15:51 | NUR ---
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 WILL CHECK BACK
--- NOTE | 2022-06-20 16:09 | NUR ---
PT COMPLAINED OF PAIN 03/24. PERCOCET GIVEN PER EMR. NO FURTHER COMPLAINTS AT THIS TIME. CALL LIGHT WITHIN REACH.
--- NOTE | 2022-06-20 17:29 | NUR ---
IN ROOM TO ASSESS PAIN. PT STATES 5/10 AND TOLERABLE. PT DENIES ANY FURTHER NEEDS AT THIS TIME. CALL LIGHT WITHIN REACH.
--- NOTE | 2022-06-20 18:01 | NUR ---
PT O2 SAT 97 ON 2L NC O2. DENIES SOB OF BREATH, CHEST TUBE LEAKING SEROUS FLUID FROM UNDER DRESSING. DRESSING REINFORCED WITH GAUZE AND TAPE. CHEST TUBE REMAINS CLAMPED. PT DENIES NEEDS AT THIS TIME. CALL LIGHT IN REACH.
--- NOTE | 2022-06-20 19:39 | NUR ---
RECEIVED REPORT FROM KWADWO ANDREWS. PT RESTING IN BED, W/CALL LIGHT IN REACH. DRESSING IN PLACE W/FOAM TAPE. SCANT AMOUNT OF SEROUS DRAINAGE. CHEST TUBE IS CLAMPED. O2 AT 97%, AND PT STATES NO SOB.
--- NOTE | 2022-06-20 20:45 | NUR ---
PT RESTING IN BED A&O X4. PT REPORTS NO DIZZINESS, CHEST PAIN, OR SOB. NC AT 2L O2 W/SATS AT 95%. CHEST TUBE IN PLACE W/FOAM TAPED AND CLAMPED. SMALL AMOUNT OF SEROUS DRAINAGE FROM SITE. BP REMAINS SOFT AT 90 SYSTOLIC, ASYMPTOMATIC. SLIGHT CREPITUS ON LEFT SIDE OF CHEST W/TRACE EDEMA. PT REPORTS PAIN 6/10, TYLENOL OFFERED BUT REFUSED AND PT STATES TOLERABLE AT THIS TIME. CHRONIC NUMBNESS IN LEGS D/T NEUROPATHY PER PT. PT LEGS REMAIN WEAK. BS CHECK BELOW PARAMETERS SO NO INSULIN GIVEN (SEE EMAR). BED ALARM ON, CALL LIGHT WITHIN REACH, NO FURTHER NEEDS AT THIS TIME.
--- NOTE | 2022-06-20 21:10 | NUR ---
Pt awake, alert and oriented, cooperative with another assessment. O2 2LNC, clear lungs L sided CT clamped, firmess and tenderness noted/stated above insertion site. dressing with old drainage, no c/o CP or SOB. CPOX in place, sats 96%. CBG WNL, no coverage needed. turns and repositions self, hob elevated to comofrt, watching tv. SL patent. uses urinal. call light and fluds at bedside
--- NOTE | 2022-06-20 22:00 | NUR ---
ANSWERED PT CALL LIGHT DUE TO CHEST TUBE DRESSING CONCERN. REINFORCED W/TAPE. CHEST TUBE STILL IN PLACE AND CLAMPED. EDUCATED PT ABOUT CLAMP AND TO USE CAUTION WHEN TURNING. PT STATES UNDERSTANDING. PT STATES PAIN 6/10 AND REQUESTS PRN PERCOCET, PROVIDED (SEE EMAR). PT NOW RESTING IN BED WATCHING TV. BED ALARM ON, CALL LIGHT WITHIN REACH, NO FURTHER NEEDS AT THIS TIME.
--- NOTE | 2022-06-20 23:41 | NUR ---
call light answered, pt requesting snack/remaining dinner in fridge- provided. chest tube remained clamp, pt tolerating well.pt denies chest pain, sob, difficulty breathing, ect. cpox in place, pt remains on 2lnc, spo2 96%, hr 90's. no additional needs, call light in reach.
--- NOTE | 2022-06-21 00:49 | NUR ---
IN ROOM FOR PRN BS CHECK D/T PT TRENDING LOW AT NIGHT. BS CHECK IS 76, PT IS NOT SYMPTOMATIC. OJ W/2 SUGAR PACKETS PROVIDED. WILL RECHECK IN 1 HR. PRN TRAZADONE GIVEN AT PT REQUEST (HOME MED, SEE EMAR). CALL LIGHT WITHIN REACH. CHEST TUBE STILL IN PLACE AND CLAMPED. BED ALARM ON. NO FURTHER NEEDS AT THIS TIME.
--- NOTE | 2022-06-21 01:59 | NUR ---
RECHECKED PT BS AFTER ONE HOUR. BS WAS 80. PROVIDED JUICE W/SUGAR. WILL RECHECK IN 1 HR. PT NOW RESTING W/EYES CLOSED. CHEST TUBE WNL AND CLAMPED. BED ALARM ON, CALL LIGHT WITHIN REACH, NO FURTHER NEEDS AT THIS TIME.
--- NOTE | 2022-06-21 03:14 | NUR ---
RECHECKED PT BS. BS WAS 100. NO INTERVENTIONS NECESSARY. PT REMAINS UNSYMPTOMATIC. PT NOW SLEEPING ON BACK W/EYES CLOSED. RESPIRATIONS ARE EVEN AND UNLABORED. CHEST TUBE CLAMPED AND DRESSING/TAPE IN PLACE. CALL LIGHT WITHIN REACH, BED ALARM ON, NO FURTHER NEEDS AT THIS TIME.
--- NOTE | 2022-06-21 04:14 | NUR ---
Resting, O2 in place, no s/sx distress or c/o hypoglycemia. L CT still clamped CPOX at bedside, sats 95%, has not c/o SOB this shift
--- NOTE | 2022-06-21 05:54 | NUR ---
THIS RN AND SMOOTH SWEET RESPOND TO BED ALARM IN PT ROOM. PT SITTING UP AT SIDE OF BED EXPRESSING NEED TO VOID, BEDSIDE URINAL PROVIDED. 800 ML OUTPUT RECORDED. NO ACUTE CHANGES FROM PREVIOUS ASSESSMENT. MINIMAL CRACKLES NOTED IN LLL. PT REMAINS ON 2L NC O2 W/SATS MID 90'S. PT REMOVED NC AND CPOX DURING SLEEP, EDUCATED PT, PT STATED UNDERSTANDING. NEW CHUCKS PLACED UNDER PT, WARM BLANKET PROVIDED. CHEST TUBE IN PLACE AND CLAMPED. DRESSING SECURED W/FOAM & SILK TAPE. CALL LIGHT WITHIN REACH, BED ALARM ON, NO FURTHER NEEDS AT THIS TIME.
--- NOTE | 2022-06-21 06:51 | NUR ---
UNEVENTFUL NIGHT FOR PT, PT SLEPT MAJORITY OF THE NIGHT. PT CHEST TUBE INCISION SITE REQUIRES DRESSING REPLACEMENT W/SILK TAPE, PLACED BY GARO RN. SCANT SEROUS DRAINAGE FROM CHEST TUBE SITE. CHEST TUBE IS CLAMPED. CPOX IN PLACE W/O2 READINGS MID 90'S THROUGHOUT NIGHT. PT REPORTS NO SOB, DIZZINESS, DIFFICULTY BREATHING. PRN PERCOCET GIVEN X1, PRN TRAZADONE GIVEN X1 (SEE EMAR). BS @ START OF SHIFT= 137 (NO INSULIN GIVEN). AT MIDNIGHT BS= 76 RECORDED, OJ W/SUGAR PROVIDED. RETESTED 1 HR LATER= 80, OJ W/SUGAR PROVIDED. RETESTED 1 HR QLFDN=138 (NO INTERVENTIONS GIVEN). PT AWOKE X1 AND REMOVED CPOX AND NC (DISORIENTED TO PLACE), REORIENTED PT & REPLACED. EDUCATED PT, PT VERBALIZED UNDERSTANDING. XRAY DUE IN AM, NO LABS. POSSIBLE DC OF OF CHEST TUBE.
--- NOTE | 2022-06-21 08:22 | NUR ---
PATIENT IN BED FOR MEAL TIME PER REQUEST. AM CARE COMPLETED, BLOOD SUGAR CHECK COMPLETED. PT HAS NO OTHER NEEDS AT THIS TIME. CALL LIGHT WITHIN REACH.
--- NOTE | 2022-06-21 08:44 | NUR ---
Patient in bed, a&ox4, no acute distress. Left chest tube intact/patent to clamp. Patient denies chest pain and or sob, respirations even and non labored. Patient remains on 2L oxygen per nc, sp02 99% at this time. Patient reports he wants his chest tube out and to go home, updated pt with plan of care at this time, he is receptive to provider's plan of care for this morning. Patient has no current needs, personal supplies and call light within reach.
--- NOTE | 2022-06-21 09:30 | NUR ---
PROVIDED MORNING MEDICTIONS WITH PRIMARY RN SPIKE. PT STATED HAVING AN 8.5/10 PAIN LEVEL SO PAIN MEDS WERE GIVEN, SEE EMAR. VITAL SIGNS SHOWED BP OF 102/65 (MAP 73), SPIRONOLACTONE GIVEN PER PARAMETERS, WILL MONITOR BP. TACHYCARDIC (LOW 100'S). O2 95% ON 2L NC. WHILE ASSESSING THE CHEST TUBE DRESSING, THE CLAMP WAS FOUND REMOVED AND ATTACHED TO THE CPO2 CORD, RECLAMPED CHEST TUBE. NOTIFIED PRIMARY RN AND PROVIDER. NO BUBBLES OR PRESENT LEAKS IN CHEST TUBE. RIGHT LUNGS SOUND CLEAR, TONI CLEAR, LLL FAINT FINE CRACKLES. PEDAL PULSES STRONG. ACTIVE BOWEL TONES. ASSISTED PT TO THE SIDE OF THE BED TO USE URINAL, PROVIDED PRIVACY AND CALL LIGHT.
--- NOTE | 2022-06-21 10:53 | NUR ---
DID NOT WANT ANY VISITORS AT THIS TIME. WILL CHECK BACK
[2022-06-21] MEDS ORDERED: ACETAMINOPHEN500 MG PO (13:01)
[2022-06-21] MEDS ORDERED: OXYCODON-ACETA1 EAC2 PO (13:01)
[2022-06-21] MEDS ORDERED: MOTRIN IB200 MG PO (13:02)
--- NOTE | 2022-06-21 13:23 | NUR ---
PATIENT IN BED PACKING UP ITEMS. VITALS AND I/O'S COMPLETED. PT HAS NO OTHER NEEDS AT THIS TIME.
--- NOTE | 2022-06-25 19:03 | DS ---
[facility] [address] [place], [place] [address] Signed ADMISSION DATE: 06/15/2022 DISCHARGE DATE: 06/21/2022 REASON FOR ADMISSION: 11th left rib fracture with resultant pneumothorax and extensive subcutaneous air. HISTORY OF PRESENT ILLNESS: This 46-year-old white man is considered disabled related to diabetes and peripheral neuropathy of the lower extremities. Four days prior to admission, he was walking and fell on a walking stick which bluntly impaled his left lateral chest wall. [place] uncomfortable. It was not associated with trouble breathing. He presented to the emergency room where he was evaluated by Dr. Kosta Lentz on day of admission currently. A chest x-ray showed extensive subcutaneous emphysema of the neck and soft tissues over the chest wall. There is no evidence of tension pneumothorax. A CT scan of the abdomen was subsequently performed which showed extensive subcutaneous emphysema of the chest wall, neck and so forth as well as pneumothorax on the left with possible basilar loculated hemothorax and atelectatic changes of the left lower lobe. A left 11th rib fracture was noted as well. He is admitted for further evaluation and care. PERTINENT PHYSICAL EXAMINATION: He is an obese white man who did not look systemically toxic or overtly dyspneic. His voice was somewhat high-pitched. He had a fullness of his neck at the base and crepitus noted including chest wall anteriorly and posteriorly. He had no evidence of cyanosis. Abdomen is soft and nontender. There is tenderness of the left lateral chest wall related to rib fracture. CT scan and chest x-ray reviewed. HOSPITAL COURSE: In the emergency room, he underwent prompt placement of a left 32-Haitian chest tube. He did not have an ongoing air leak so far as could be told. He was managed with a chest tube and 20 cm suction as well as supplemental oxygen. Subsequent chest x-rays showed near resolution of the pneumothorax with only a minimal faint apical less than 5 mm pneumothorax. This crepitus began to decline over time. Due to the persistence of a minimal 5 mm apical pneumothorax on the left, the chest tube was clamped and superiorly examined by chest x-ray showing no evidence of progression of pneumothorax or other problem. The chest tube was removed and subsequent evaluation showed the lungs to be unchanged. By day of discharge, his crepitus of the soft tissue was essentially gone. His voice has returned to near normal we believe. Electronically Signed By: DAISY SARAH MD 06/25/22 190 PATIENT NAME: STERLING QUIJANO DISCHARGE SUMMARY DATE OF : 73 REPORT #: [id number] PHYSICIAN: DAISY SARAH MD PCP: JOSE MATA MD REPORT IS CONFIDENTIAL AND NOT TO BE RELEASED WITHOUT AUTHORIZATION [facility] [address] [place] [id number] Signed His chest dressing will remain in place until Friday (today is Friday). He understands to avoid going to altitude greater than 5000 feet whether in a plane or not, so as to minimize the chance of recurrent pneumothorax. In removing his chest tube dressing on Friday, it does not need to be replaced and showering on a daily basis would be encouraged at that point. He will follow up with me in approximately 4 weeks. He will call on Friday to schedule an appointment. DISCHARGE MEDICATIONS: 1. Percocet 7.5/325, 1-2 p.o. q.6 hours as needed for pain #20. 2. Tylenol plain 1000 mg p.o. q.6 hours as needed for lesser pain #60. 3. Ibuprofen 600 mg p.o. q.6 hours as needed for pain #30, refill three. He will continue with his usual medications includin. Omeprazole 20 mg p.o. daily. 2. Acamprosate 333 mg one p.o. t.i.d. 3. Trazodone 50 mg p.o. at bedtime. 4. Glargine insulin (Basaglar KwikPen) 100 units/mL, 30 units subcutaneously daily. 5. Vitamin D 50 mcg p.o. daily. 6. Gabapentin 300 mg p.o. t.i.d. 7. Metformin 1000 mg p.o. b.i.d. 8. Spironolactone 50 mg p.o. daily. 9. Citalopram 20 mg p.o. daily. DISCHARGE DIAGNOSES: 1. Blunt force trauma to the left chest with walking stick, a ground level fall with 11th rib fracture, subsequent to left pneumothorax and extensive subcutaneous emphysema. 2. Prior history of alcohol abuse. 3. Obesity. 4. Peripheral neuropathy causing disability. 5. 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 MD MIRZA Kent/BRIT /[id number] Electronically Signed By: DAISY SARAH MD 06/25/22 1903 PATIENT NAME: STERLING QUIJANO DISCHARGE SUMMARY DATE OF : 73 REPORT #: [id number] PHYSICIAN: DAISY SARAH MD PCP: JOSE MATA MD REPORT IS CONFIDENTIAL AND NOT TO BE RELEASED WITHOUT AUTHORIZATION [facility] [address] [place], [place] [address] Signed cc: oKsta Mata MD Copies: JOSE MATA DMD ~ Electronically Signed By: DAISY SARAH MD 06/25/22 1903 PATIENT NAME: STERLING QUIJANO DISCHARGE SUMMARY DATE OF : 73 REPORT #: [id number] PHYSICIAN: DAISY SARAH MD PCP: JOSE MATA MD REPORT IS CONFIDENTIAL AND NOT TO BE RELEASED WITHOUT AUTHORIZATION
== END 2022-06-21 14:00 | disposition home or self-care (01) | DRG 200 ==
LOC: ED 13:38 → CCU 13:40 → MS 06-18 10:55
PROVIDERS: ADMIT Surgery; ATTEND Surgery
PROC: 0W9B00Z Drainage of Left Pleural Cavity with Drainage Device, Open Approach (ICD-10-PCS; principal; 2022-06-15)
PROC: 0WPBX0Z Removal of Drainage Device from Left Pleural Cavity, External Approach (ICD-10-PCS; 2022-06-21)
DX: S27.0XXA Traumatic pneumothorax, initial encounter (principal); S22.32XA Fracture of one rib, left side, initial encounter for closed fracture; T79.7XXA Traumatic subcutaneous emphysema, initial encounter; E66.9 Obesity, unspecified; K76.0 Fatty (change of) liver, not elsewhere classified; W18.30XA Fall on same level, unspecified, initial encounter; F10.10 Alcohol abuse, uncomplicated; I10 Essential (primary) hypertension; F41.8 Other specified anxiety disorders; E11.42 Type 2 diabetes mellitus with diabetic polyneuropathy; Z20.822 Contact with and (suspected) exposure to COVID-19; Z98.890 Other specified postprocedural states; Z79.899 Other long term (current) drug therapy; Z79.84 Long term (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 of oral hypoglycemic drugs; Z79.4 Long term (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
CPT/HCPCS: 36415; 71045; 71260; 80048; 80053; 83036; 83690; 84484; 85025; 85610; 85730; 93005; 93010; 94762; C9803; J1815; J2250; J2270; J3010; J7030; J7121; Q9967; U0003

== ENCOUNTER 2022-09-02 19:37 | Emergency (ER) | payer OTHER ==
[~2022-09-02] VITALS: Ht 200.7 cm; Wt 120.1 kg
[~2022-09-02 19:37] MED LIST changes: +ACETAMINOPHEN500 MG PO; +MIDODRINE HCL5 MG PO; +MOTRIN IB200 MG PO; +OXYCODON-ACETA1 EAC2 PO
--- OUTSIDE RECORDS SUMMARY | 2022-09-02 19:40 | XMS ---
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 E.D. VISIT COUNT (12 MO.) 7 [facility] TOTAL 7 NOTE: Visits indicate total known visits. 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 - Fall on same level from slipping, tripping and stumbling without subsequent striking against object, initial encounter 01/07/2022 13:15 [facility] TYPE: Emergency COMPLAINT: - BOTH ANKLES SWOLLEN DIAGNOSES: - Type 2 diabetes mellitus without complications - Other fdc (current) drug therapy - assisted (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 - Localized edema - Essential (primary) hypertension 12/27/2021 07:00 [facility] TYPE: Emergency COMPLAINT: - ALTERED MENTAL STATUS 10/13/2021 00:20 [facility] TYPE: Emergency COMPLAINT: - FALL INPATIENT VISIT TRACKING (12 MO.) 08/12/2022 12:23 [facility] TYPE: Observation COMPLAINT: - HYPERKALEMIA, HYPOTENSION, CIRRHOSIS DIAGNOSES: - 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 - Hyperkalemia - Alcohol abuse, uncomplicated - Chronic hepatic failure without coma - Alcoholic cirrhosis of liver with ascites - Type 2 diabetes mellitus without complications - Generalized anxiety disorder - Contact with and (suspected) exposure to COVID-19 - Chronic hepatic failure without coma - Alcoholic cirrhosis of liver with ascites - Acute kidney failure, unspecified - Type 2 diabetes mellitus with diabetic neuropathy, unspecified 06/15/2022 17:34 [facility] TYPE: Medical Surgical COMPLAINT: - PNEUMOTHORAX DIAGNOSES: - Fatty (change of) liver, not elsewhere classified - Traumatic subcutaneous emphysema, initial encounter - Fracture of one rib, left side, initial encounter for closed fracture - Alcohol abuse, uncomplicated - Contact with and (suspected) exposure to COVID-19 - Other fdc (current) drug therapy - Traumatic pneumothorax, initial encounter - assisted (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 - Essential (primary) hypertension - Type 2 diabetes mellitus with diabetic neuropathy, unspecified - 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 - Alcohol abuse, uncomplicated - 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 - Fatty (change of) liver, not elsewhere classified - Contact with and (suspected) exposure to COVID-19 - 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 - Fall on same level, unspecified, initial encounter - Other specified postprocedural states - Traumatic subcutaneous emphysema, initial encounter - Essential (primary) hypertension - Type 2 diabetes mellitus with diabetic neuropathy, unspecified - Fall on same level, unspecified, initial encounter - Other specified postprocedural states - assisted (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 of oral hypoglycemic drugs - Type 2 diabetes mellitus with diabetic polyneuropathy - Fracture of one rib, left side, initial encounter for closed fracture - Obesity, unspecified - Other specified anxiety disorders - Obesity, unspecified - Other specified anxiety disorders 12/27/2021 11:05 [facility] TYPE: Medical Surgical COMPLAINT: - ALCOHOLIC HEPATITIS ENCEPHALOPATHY DIAGNOSES: - Alcoholic hepatic failure without coma - Alcoholic hepatitis without ascites - Metabolic encephalopathy - Type 2 diabetes mellitus without complications - Alcoholic hepatitis without ascites - Hypo-osmolality and hyponatremia - Anxiety disorder, unspecified - Dehydration - Alcohol dependence with withdrawal, unspecified - 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 - Anxiety disorder, unspecified - Dehydration - Type 2 diabetes mellitus without complications - Alcohol dependence with withdrawal, unspecified - 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
[2022-09-02] MEDS ORDERED: ELIQUIS5 MG PO (19:47)
[2022-09-02] MEDS ORDERED: SPIRONOLACTONE50 MG PO (19:48)
[2022-09-03] MEDS ORDERED: MAGNESIUM400 MG PO (04:58)
[2022-09-03] MEDS ORDERED: SPS15 GM/60 M PO (04:58)
--- NOTE | 2022-09-03 16:47 | EKG ---
[facility] [address] [facility] [place] [address] Signed Sinus rhythm with 1st degree AV block Low voltage QRS Nonspecific T wave abnormality Abnormal ECG When compared with ECG of 11-AUG-2022 20:58, NH interval has increased Confirmed by Jasen Olivas MD () on 09/03/2022 4:47:42 PM Electronically Signed By: JASEN OLIVAS MD 09/03/22 1647 PATIENT NAME: MACIESTERLING RICHARDSON Electrocardiogram DATE OF : 73 PHYSICIAN: JASEN OLIVAS MD REPORT #: [id number] REPORT IS CONFIDENTIAL AND NOT TO BE RELEASED WITHOUT AUTHORIZATION
== END 2022-09-03 05:21 | disposition home or self-care (01) ==
LOC: ED 19:37
DX: E87.5 Hyperkalemia (principal); E83.42 Hypomagnesemia; K70.31 Alcoholic cirrhosis of liver with ascites; K72.10 Chronic hepatic failure without coma; E11.40 Type 2 diabetes mellitus with diabetic neuropathy, unspecified; Z20.822 Contact with and (suspected) exposure to COVID-19; Z79.899 Other long term (current) drug therapy; Z79.01 Long term (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 of anticoagulants; Z79.84 Long term (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 of oral hypoglycemic drugs; Z86.718 Personal history of other venous thrombosis and embolism
CPT/HCPCS: 36415; 71045; 80048; 80053; 82553; 83735; 83880; 84484; 85025; 85610; 87502; 93005; 93010; 94644; 96361; 96374; 96375; 96376; 99284-25; J0610; J1815; J1940; J7030; U0003

== ENCOUNTER 2022-09-12 09:43 | Inpatient (IN) | payer OTHER ==
[~2022-09-12] VITALS: Ht 200.7 cm; Wt 115.6 kg
[~2022-09-12 09:43] MED LIST changes: +ELIQUIS5 MG PO; +MAGNESIUM400 MG PO; +SPS15 GM/60 M PO
--- OUTSIDE RECORDS SUMMARY | 2022-09-12 09:46 | XMS ---
PreManage Notification: STERLING QUIJANO Security Network Security Engineer Events No recent Security Events currently on file CRITERIA MET - [facility] - [facility] - 2 Visits in 30 Days CARE PROVIDERS TORRES ASHTON Membership Sales Advisor 12/28/2021-Current PHONE: [phone] ZEKE BLANCO Family Medicine 09/29/2020-Current PHONE: Unknown JOSE MATA [facility] Current PHONE: [phone] Triston has no Care Guidelines for this patient. E.D. VISIT COUNT (12 MO.) 8 SIENA Fung TOTAL 8 NOTE: Visits indicate total known visits. ED/UCC VISIT TRACKING (12 MO.) 09/12/2022 09:44 SIENA Torres [place] TYPE: Emergency COMPLAINT: - ABNORMAL LABS 09/02/2022 19:37 SIE[facility] Torres [place] TYPE: Emergency COMPLAINT: - WEAKNESS DIAGNOSES: - Other shelter (current) drug therapy - Alcoholic cirrhosis of liver with ascites - senior care (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 of oral hypoglycemic drugs - Chronic hepatic failure without coma - Hyperkalemia - Personal history of other venous thrombosis and embolism - termite treater (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 of anticoagulants - Contact with and (suspected) exposure to COVID-19 - Type 2 diabetes mellitus with diabetic neuropathy, unspecified - Hypomagnesemia 08/11/2022 19:51 [facility] [place] TYPE: Emergency COMPLAINT: - WEAKNESS, DIARRHEA 06/15/2022 13:39 SIE[facility] Torres [place] TYPE: Emergency COMPLAINT: - SWOLEN THROAT,RIB PAIN 04/26/2022 17:45 SIE[facility] Torres [facility] TYPE: Emergency COMPLAINT: - CHEST INJ DIAGNOSES: - Essential (primary) hypertension - Type 2 diabetes mellitus with diabetic polyneuropathy - Other termite treater (current) drug therapy - Chest pain, unspecified - Contusion of middle front wall of thorax, initial encounter - senior care (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 - Fall on same level from slipping, tripping and stumbling without subsequent striking against object, initial encounter 01/07/2022 13:15 [facility] TYPE: Emergency COMPLAINT: - BOTH ANKLES SWOLLEN DIAGNOSES: - Type 2 diabetes mellitus without complications - Other termite treater (current) drug therapy - senior care (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 - Localized edema - Essential (primary) hypertension 12/27/2021 07:00 S[facility] OR TYPE: Emergency COMPLAINT: - ALTERED MENTAL STATUS 10/13/2021 00:20 SIE[facility] Torres OR TYPE: Emergency COMPLAINT: - FALL INPATIENT VISIT TRACKING (12 MO.) 08/12/2022 12:23 SIE[facility] Torres OR TYPE: Observation COMPLAINT: - HYPERKALEMIA, HYPOTENSION, CIRRHOSIS DIAGNOSES: - Type 2 diabetes mellitus with diabetic neuropathy, unspecified - termite treater (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 of oral hypoglycemic drugs - Hyperkalemia - Alcohol abuse, uncomplicated - Chronic hepatic failure without coma - Alcoholic cirrhosis of liver with ascites - Type 2 diabetes mellitus without complications - Generalized anxiety disorder - Contact with and (suspected) exposure to COVID-19 - Chronic hepatic failure without coma - Alcoholic cirrhosis of liver with ascites - Acute kidney failure, unspecified 06/15/2022 17:34 SIE[facility] Torres OR TYPE: Medical Surgical COMPLAINT: - PNEUMOTHORAX DIAGNOSES: - Obesity, unspecified - Other specified anxiety disorders - Fatty (change of) liver, not elsewhere classified - Traumatic subcutaneous emphysema, initial encounter - Fracture of one rib, left side, initial encounter for closed fracture - Alcohol abuse, uncomplicated - Contact with and (suspected) exposure to COVID-19 - Other termite treater (current) drug therapy - Traumatic pneumothorax, initial encounter - senior care (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 - Essential (primary) hypertension - Type 2 diabetes mellitus with diabetic neuropathy, unspecified - senior care (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 - Alcohol abuse, uncomplicated - Other shelter (current) drug therapy - Fatty (change of) liver, not elsewhere classified - Contact with and (suspected) exposure to COVID-19 - termite treater (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 of oral hypoglycemic drugs - Fall on same level, unspecified, initial encounter - Other specified postprocedural states - Traumatic subcutaneous emphysema, initial encounter - Essential (primary) hypertension - Type 2 diabetes mellitus with diabetic neuropathy, unspecified - Fall on same level, unspecified, initial encounter - Other specified postprocedural states - termite treater (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 of oral hypoglycemic drugs - Type 2 diabetes mellitus with diabetic polyneuropathy - Fracture of one rib, left side, initial encounter for closed fracture - Obesity, unspecified - Other specified anxiety disorders 12/27/2021 11:05 [facility] OR TYPE: Medical Surgical COMPLAINT: - ALCOHOLIC HEPATITIS ENCEPHALOPATHY DIAGNOSES: - Alcoholic cirrhosis of liver without ascites - Other termite treater (current) drug therapy - Alcoholic hepatic failure without coma - Alcoholic hepatitis without ascites - Metabolic encephalopathy - Type 2 diabetes mellitus without complications - Alcoholic hepatitis without ascites - Hypo-osmolality and hyponatremia - Anxiety disorder, unspecified - Dehydration - Alcohol dependence with withdrawal, unspecified - senior care (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 - Anxiety disorder, unspecified - Dehydration - Type 2 diabetes mellitus without complications - Alcohol dependence with withdrawal, unspecified - termite treater (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 - Other termite treater (current) drug therapy - Depression, unspecified - Hypo-osmolality and hyponatremia - Contact with and (suspected) exposure to COVID-19 - Depression, unspecified - Alcoholic cirrhosis of liver without ascites - Metabolic encephalopathy - Essential (primary) hypertension - Contact with and (suspected) exposure to COVID-19 - Essential (primary) hypertension 10/13/2021 10:19 SIENA Torres OR TYPE: Medical Surgical COMPLAINT: - ACUTE SUBARACHNOID HEMORRHAGE,SYNCOPE WITH COLLAPS DIAGNOSES: - Other termite treater (current) drug therapy - Contact with and (suspected) exposure to COVID-19 - Other fall on same level, initial [...] Repeated falls - Anxiety disorder, unspecified - senior care (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 of oral hypoglycemic drugs - [...] diabetes mellitus without complications - Other termite treater (current) drug therapy - Other fall on same level, initial encounter - termite treater (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 of oral hypoglycemic drugs [email or web address]
[2022-09-12] MEDS ORDERED: SPIRONOLACTONE50 MG PO (10:23)
[2022-09-12] MEDS ORDERED: FUROSEMIDE40 MG PO (10:23)
--- NOTE | 2022-09-12 16:31 | NUR ---
Spoke with pts mom as he lives with her. He has had a decline since last admission. Mom states he saw INSECTICIDE MIXER Stacey Mathews from Dr. Almeida's office yesterday. Labs were drawn last night and when they received the results, they requested pt go to the hospital. Per mom, pt was able to speak with transplant program and if is able to stay sober for 6 month and connect with alcohol program, they will put him on the list. Mom states pt is able to walk approx 20 ft with walker, she has to help he stand or he cannot get up. She has ordered him a lift chair. She states he is frequently incontinent of stool throughout the house. She states he has a pending MRI of his liver at [facility] as he has a lesion on his liver. He is scheduled for a colonoscopy on 09/30/22 at [place]. We again discussed his finances as she would like him to go to an FDC or SNF. I asked her to go to [facility] and start the process if seeing if pt qualifies for LTC through medicaid. Discussed pt will need to go home with her until finances can be figured out for placement. Pts mom is Lucy.
--- NOTE | 2022-09-12 18:00 | NUR ---
THIS RN DOWN WITH PATIENT TO IMAGING FOR 2 VIEW CHEST XRAY. PATIENT IS VERY WEAK IN THE LEGS, BUT HAS DECENT CORE AND UPPER BODY STRENGTH. PATIENT IS A HEAVY TWO PERSON ASSIST TO STAND. SEE EMAR FOR NEW MEDICATIONS. PATIENT REFUSED DINNER, BUT DRINKING AN ENSURE. PATIENT RESTING IN BED NOW AT THIS TIME. WILL CONTINUE TO CLOSELY MONITOR.
--- NOTE | 2022-09-12 19:05 | NUR ---
MD AWARE OF LOW URINE OUTPUT. PER MD CONTINUE TO MONITOR URINE OUTPUT. GOAL URINE OUTPUT OF 25MLS/HR OR 100MLS/PER 4 HOURS. WILL UPDATE SUPERVISOR WET POUR RN. NO OTHER NEEDS AT THIS TIME. WILL CONTINUE TO CLOSELY MONITOR.
--- NOTE | 2022-09-12 20:00 | NUR ---
PATIENT APPEARS TO BE SLEEPING SOUNDLY. IVF PER ORDER INFUSING; SITE WNL. PATIENT HAS ATTENDS ON AND HAS BEEN USING THE URNAL PER DAYSHIFT. VS STABLE. PATIENT'S SYSTOLIC BP >90 BUT MAP > 65. WILL CONTINUE TO MONITOR.
--- NOTE | 2022-09-12 21:15 | NUR ---
PATIENT AAOX4. REPORTS GENERAL ACHES AND PAINS. UPON WAKING PATIENT AWARE HE WAS INCONTINENT OF BOWEL AND BLADDER. PATIENT ABLE TO ROLL AND ATTENDS CHANGED. MEDIUM SOFT BM NOTED. PATIENT PLACED ON BEDPAN AND AFTER SEVERAL MINS HAD ANOTHER LARGE LIQUID STOOL THAT HE REPORTS IS PARTIALLY URINE. CHRISTI CARE DONE AND ATTEND IN PLACE. PATIENT PROVIDED WITH SCHEDULED MEDS AND SSI PER ORDER. IV FLUIDS INFUSING PER ORDER, SITES WNL X2. SORES NOTED ON PATIENT RIGHT HIP, BOTH LEGS AND ARMS. MULTIPLE STAGES OF HEALING, NO SIGNS OF INFECTION AND HEALING IS WNL. PATIENT UNSURE OF HOW HE GOT MOST OF THESE. 2-3+ PITTING EDEMA FROM HIPS DOWN NOTED. ELEVATING LEGS POSSIBLE. PATIENT TOLERATING 3L NC AND DENIES FEELING SOB. BP CUFF REPLACED AND REPOSITIONED TO THE RIGHT ARM. PATIENT DENIED OTHER NEEDS. CALL [facility] IN REACH.
--- NOTE | 2022-09-12 22:30 | NUR ---
REPORTED PATIENT'S CURRENT BP TREND TO DR.REDDY; STARKS WILL PUT IN ORDERS.
--- NOTE | 2022-09-12 23:21 | NUR ---
PATIENT UPDATED ON MED CHANGES; INCLUDING ABX CHANGES. PATIENT HAS NO QUESTIONS. PO MEDS PROVIDED AND IV CEFEPIME AND MAG INFUSING PER ORDER; IV SITE WNL X2. PATIENT IS BACK ON THE BEDPAN AND REPORTS NEEDING MORE TIME. CALL LIGHT IN REACH.
--- NOTE | 2022-09-13 00:01 | NUR ---
PATIENT HAD ANOTHER SMALL SOFT STOOL MIXED WITH URINE. ESTIMATED URINE AT 100 MLS. PATIENT CLEANED AND TAKEN OFF BEDPAN. ATTENDS PLACED UNDER HIM AT THIS TIME. IV FLUIDS INFUSING PER ORDER; MAG AND CEFEPIME FINISHED.
--- NOTE | 2022-09-13 00:30 | NUR ---
SECOND DOSE MAG REPLACEMENT STARTED PER ORDER. VANCO RECEIVED FROM OPERATIONS AND MAINTENANCE TECHNICAN AND INFUSING. PATIENT VERBALIZED UNDERSTANDING TO REPORT ANY DISCOMFORT WITH IVs. PATIENT IS AAOX4. DENIES NEED TO VOID. TOLERATING 3L NC. CALL LIGHT IN REACH.
--- NOTE | 2022-09-13 02:15 | NUR ---
PATIENT'S BP HAS IMPROVED AFTER INITIAL DROP; CONTINUE TO MONITOR Q15M AT THIS TIME. PATIENT APPEARS TO BE SLEEPING SOUNDLY. ALLOW PATIENT TO REST. CALL LIGHT IN REACH.
--- NOTE | 2022-09-13 05:00 | NUR ---
ENCOURAGED PATIENT TO USE THE URNAL. PATIENT ATTEMPTED BUT DID NOT VOID AND REPORTS NOT FEELING THE NEED. PATIENT DID HAVE A LOOSE STOOL. ASSISTED PATIENT TO ROLL AND ATTENDS CHANGED. PATIENT DENIED OTHER NEEDS.
--- NOTE | 2022-09-13 07:01 | NUR ---
PATIENT UPDATE GIVEN TO ORDERS RECEIVED AND VERIFIED VIA REPEAT BACK. SEE eMAR.
--- NOTE | 2022-09-13 07:30 | NUR ---
REPORT RECIEVED FROM TECHNICAL OPERATIONS VICE PRESIDENT RN. PATIENT HAD A GOOD NIGHTS REST. PATIENT CONTINUED TO HAVE MINIMAL OUTPUT OVERNIGHT. SEE NEW ORDERS AT THIS TIME FOR LOW URINE OUTPUT. WILL CONTINUE TO CLOSELY MONTIOR.
--- NOTE | 2022-09-13 08:30 | NUR ---
PATIENT AWAKE IN BED, VITALS AND I&OS CHARTED. BREAKFAST AND WARM BLANKETS PROVIDED. CALL LIGHT IN EASY REACH, NO OTHER NEED AT THIS TIME
[2022-09-13] MEDS ORDERED: INSULIN GL100 UNIT/2 SUB-Q (09:28)
[2022-09-13] MEDS ORDERED: HYDROXYZINE HCL10 MG PO (09:29)
--- NOTE | 2022-09-13 09:30 | NUR ---
MED REC COMPLETE
--- NOTE | 2022-09-13 09:30 | NUR ---
PATIENT ASSESSMENT COMPLETED. PATIENT IS ALERT AND ORIENTED. PATIENT BREATH SOUNDS CLEAR AND DIMINIHSED IN BASES,. PATIENT ON 3L NC. RR- EVEN AND UNLABORED. PATIENT HAS SIGNIFICANT EDEMA THAT IS FROM HIS FEET TO HIS NIPPLE LINE. PATIENTS ABD IS FIRM WITH 2+ EDEMA NOTED. PATIENT SCROTUM ALSO SWOLLEN. PLACED A ROLLED TOWEL UNDER SCROTUM FOR COMFORT. PATIENT CONTINUES TO BE UNABLE TO URINATE. SEE EMAR FOR MEDICATION CHANGES. PATIENT STATES "I FEEL A LITTLE BETTER" PATIENT HAS A GOOD APPETITE THIS MORNING. WILL CONTINUE TO CLSOELY MONTIOR.
--- NOTE | 2022-09-13 10:30 | NUR ---
UPDATED MD HAMPTON THAT PATIENT HAS ONLY HAD 25MLS OUTPUT SINCE PATIENT RECIEVED ALBUMIN AND A BOLUS. PATIENT TRANSFERED TO THE MEDICAL UNIT. REPORT GIVEN AT BEDSIDE TO KWADWO ANDREWS. SEE NEW ORDERS.
--- NOTE | 2022-09-13 10:34 | NUR ---
REPORT RECEIVED FROM CCU RN, ALL QUESTIONS ANSWERED. PT TRANSFERED VIA BED TO RM 118. ORIENTED TO CALL LIGHT, DENIES PAIN OR NEEDS AT THIS TIME. CALL LIGHT IN REACH.
--- NOTE | 2022-09-13 11:37 | NUR ---
PATIENT IS WATCHING TV. PATIENT STATES HIS PLAN OF CARE IS TO GO HOME WITH HIS MOTHER, WHO IS HIS THEATRE DIRECTOR. PATIENT SAYS HE HAS STOPPED DRINKING. PATIENT IS STILL ON THE [facility] TRANSPLANT LIST PER "THE PATIENT".
--- NOTE | 2022-09-13 14:52 | NUR ---
PT ASSISTED OFF THE BEDPAN, ABLE TO VOID 200MLS DARK CONCENTRATED URINE. 1 SMALL LIQUID BM. PT TURNED TO LEFT SIDE. DENIES NEEDS AT THIS TIME. CALL LIGHT IN REACH.
--- NOTE | 2022-09-13 17:24 | EKG ---
[facility] [address] [place] [address] Signed Sinus tachycardia Low voltage QRS Nonspecific T wave abnormality Abnormal ECG When compared with ECG of 12-SEP-2022 10:08, (Unconfirmed) No significant change was found Confirmed by KENYA HAMPTON MD ([id number]) on 09/13/2022 5:24:44 PM Electronically Signed By: KENYA HAMPTON MD 09/13/22 1724 PATIENT NAME: STERLING QUIJANO Electrocardiogram DATE OF : 73 PHYSICIAN: KENYA HAMPTON MD REPORT #: [id number] REPORT IS CONFIDENTIAL AND NOT TO BE RELEASED WITHOUT AUTHORIZATION
--- NOTE | 2022-09-13 17:24 | EKG ---
[facility] [address] [facility] [place] [address] Signed Sinus tachycardia Low voltage QRS Nonspecific T wave abnormality Abnormal ECG When compared with ECG of 02-SEP-2022 19:59, PA interval has decreased Nonspecific T wave abnormality now evident in Lateral leads Confirmed by KENYA HAMPTON MD ([id number]) on 09/13/2022 5:24:34 PM Electronically Signed By: KENYA HAMPTON MD 09/13/22 1724 PATIENT NAME: MACIESTERLING Electrocardiogram DATE OF : 73 PHYSICIAN: KENYA HAMPTON MD REPORT #: [id number] REPORT IS CONFIDENTIAL AND NOT TO BE RELEASED WITHOUT AUTHORIZATION
--- NOTE | 2022-09-13 19:30 | NUR ---
REPORT RECEIVED FROM KWADWO ANDREWS. PT RESTING IN BED, EYES CLOSED. RR EVEN, UNLABORED. IV FLUIDS INFUSING PER ORDER. CALL LIGHT IN REACH.
--- NOTE | 2022-09-13 22:00 | NUR ---
ASSESSMENT COMPLETED. GCS 15, A&O X4. LUNGS HAVE EXPIRATORY WHEEZING IN ALL LOBES. ABD FIRM, DISTENDED, NONTENDER, BOWEL TONES ACTIVE. 3+ EDEMA IN BLE AND 1+ IN HIPS. SCATTERED ABRASIONS NOTED. IVs WNL, CDI, FLUSHED WELL. NICOTINE GUM PROVIDED. SCHEDULED MEDS PROVIDED. NO OTHER NEEDS AT THIS TIME. CALL LIGHT IN REACH.
--- NOTE | 2022-09-13 22:30 | NUR ---
PT ASSISTED ONTO THE BEDPAD, URINAL PROVIDED
--- NOTE | 2022-09-13 23:00 | NUR ---
PT RESTING INBED, EYES CLOSED. RR EVEN, UNLABORED. CALL LIGHT IN REACH.
--- NOTE | 2022-09-14 00:30 | NUR ---
SCHEDULED MED PROVIDED. PT RESTING IN BED, EYES CLOSED. RR EVEN, UNLABORED. NC @ 2L. CALL LIGHT IN REACH.
--- NOTE | 2022-09-14 02:00 | NUR ---
PT RESTING IN BED, EYES CLOSED. RR EVEN, UNLABORED. CALL LIGHT IN REACH.
--- NOTE | 2022-09-14 04:00 | NUR ---
PT RESTING IN BED, EYES CLOSED. RR EVEN, UNLABORED. CALL LIGHT IN REACH.
--- NOTE | 2022-09-14 04:20 | NUR ---
IN TO GET VS, PT POSISTIONED WITH PILLOW TO THE LEFT HIP
--- NOTE | 2022-09-14 05:09 | NUR ---
ASSESSMENT COMPLETED. UPPER LUNGS HAVE EXPIRATORY WHEEZES AND DIM IN LOWER LOBES. EDEMA UNCHANGED. IVs WNL, IV FLUIDS INFUSING PER ORDER. NO OTHER NEEDS AT THIS TIME. CALL LIGHT IN REACH.
--- NOTE | 2022-09-14 05:25 | NUR ---
PT PUMP ALARMING, NEW BAG IV FLUIDS. NO OTHER NEEDS AT THIS TIME. CALL LIGHT IN REACH.
--- NOTE | 2022-09-14 06:10 | NUR ---
SCHEDULED MEDS PROVIDED. PT OFFERED TO GET ON BED BROWN AND/OR USE URINAL. PT DECLINES. PT DECLINES ANY OTHER INTERVENTIONS AND STATES "ARE YOU DONE YET? i JUST WANT TO GO BACK TO SLEEP." PT EDUCATED CONCERNING LOW URINE OUTPUT. NO OTHER NEEDS. CALL LIGHT IN REACH. Hookit NOTE SENT TO DR HAMPTON IS ALREADY AWARE OF LOW URINE OUTPUT.
--- NOTE | 2022-09-14 07:10 | NUR ---
report recieved from Dot ANDREWS
--- NOTE | 2022-09-14 08:00 | NUR ---
IN ROOM ROUNDING ON PT AND OBTAINING BLOOD SUGAR WHICH WAS 206 PT GETS 3 UNITS HUMALOG SUBQ, PT IS LAYING IN BED, ASLEEP CAN BE HEARD SNORING, STIRS WHEN BEING TALKED TO. PT INORMED IT IS MORNING AND ASKED IF HE NEEDED ANYTHING, PT JUST GRUNTS "NO"
--- NOTE | 2022-09-14 09:13 | NUR ---
PT LAYING IN BED. VITALS AND IS AND OS COMPLETE. PT REPOS TO LEFT SIDE. PT DECLINED NEEDS TO USE URINAL OR BEDPAN.
--- NOTE | 2022-09-14 09:21 | NUR ---
IN ROOM TO CHECK ON PT, MICKI JIN HAS JUST REPOSITONED PT. ASKED , PT IF HE WAS READY TO BE CLEANED UP THIS RN HAD OTHER AUTOMATIC TELLER MACHINE SERVICER LEANDRO WITH HER TO ASSIST PT, PT HAD TOLD THIS RN HE "WENT ALL OVER" REFRRING TO HAVING VOIDED BUT NOT USING URINAL. PT STATES "NO I DIDN'T GO ALL OVER JUST A BIT NOT REALL" REINFORCED TO PT THAT IF HE DOES FEEL URGE TO GO THAT HE NEEDS TO USE CALL LIGHT TO ENSURE HE USES URINAL OR BEDPAN. PT CALLED STATED "WELL SHE'S A BITCH" TO MICKI MEJÍA THIS RN HAD STEPPED OUT. THIS RN BACK IN ROOM TO INFORM PT THAT HIS LANGUAGE AND USE OF DERGOGOTRY NAMES WILL NOT BE TOLERATED AT STAFF. PT APOLOGIZED AND ROLLED EYES.
--- NOTE | 2022-09-14 10:48 | NUR ---
pt distribution dispatcher light needed to void, was able to assist pt in using a urinal to catch about 200ml urine however, the chux under pt was saturated with urine and pt had a small bm, per pt he "didn't know" that he had bm. this RN and Brittani SWEET in room rolling patient and cleaning him, did a complete bed change as well. placed a clean attend under pt, asked pt to keep using call light for needs to void or have BM and any other needs. states "i will"
--- NOTE | 2022-09-14 11:56 | NUR ---
IN ROOM TO CHECK ON PT AND ADMINISTER INSULIN, HIS BLOOD SUGAR IS 187, GETS 3 UNITS HUMULOG. PT HAS HOB ELEVATED, CAN BE HEARD SNORING, INFORMED PT WE ARE GIVING HIM INSULIN, PT WAKES UP AND RESPONS, PT STATED HE "DIDN'T SLEEP HARDLY LAST NIGHT" PT HAS BEEN ASKED IF HE WOULD LIKE TO TRANSFER TO THE RECLINER TO SIT UP AND NOT STAY IN THE B ED, PT DECLINEING, PT HAS BEEN EDUCATED ON THE RISKS OF STAYING IN BED AND NOT REALLY MOVING ETC, STATES "I KNOW"
--- NOTE | 2022-09-14 12:25 | NUR ---
LAB DRAWING TIMED LABS TO INCLUDE YUDY MESA
--- NOTE | 2022-09-14 13:57 | NUR ---
in room to medicate pt. per emar the cefepime for 1400 was canceled did not start this infusion but med was already pulled and mixed. Tremaine gamble'd for today due to trough. pt's lunch is at bedside, pt was able to swallow his pills, asked pt to try to eat something states "i'll work on it" pt denies having need to void at this time.
--- NOTE | 2022-09-14 15:05 | NUR ---
PER DAVIN SWEET, PT WAS IN ROOM TO WORK WITH PT AND PATIENT WAS BEING "DIFFICULT" AND EXHIBITED AN UNCOOPERATIVE DEMAENOR TO ACCOMPLISH SIMPLE TASKS IN GETTING UP TO AT LEAST SIT UP ON BED, PT WAS NOT WANTING TO DO THIS WAS WANTING TO JUST STAY IN BED.
--- NOTE | 2022-09-14 15:45 | NUR ---
THIS RN WAS IN ROOM TO HANG NEW BAG OF IV FLUID AND TO GIVE ORAL ANTIBIOTIC, PT WAS ASLEEP WITH HOB ELEVATED, PT AWAKENED AND TOOK HIS MEDS, ALSO ENCOURAGE PT TO WORK WITH PT WHEN THEY COME TOS EE HIM IT IS ONLY FOR HIS BENEFIT AND HIS CONDITION WILL NOT IMPROVE AND MAY ONLY GET WORSE IF HE CONTINUES TO JUST LIE AROUND.
--- NOTE | 2022-09-14 17:05 | NUR ---
ASSESSMENT COMPLETED HOWEVER PT IS NOT VERY INTERACTIVE WITH ASSESSMENT AND UPON AUSCULTATING LINGS AND HEARING HIS AUDIBLE WHEEZING ASKED PT IF WE CAN GIVE HIM A BREATHING TREATMENT, PT REFUSES STATES HE "DOESN'T WANT ONE" PT EDUCATED.
--- NOTE | 2022-09-14 18:31 | NUR ---
PT HAS BEEN ASLEEP ON AND OFF MOST OF DAY, PT HAS BEEN DIFFICULT AND UNCOOPERATIVE WITH STAFF AT TIMES WHEN ENCOURAGED TO GET UP FROM BED WITH ASSISTANCE AND ALSO WAS NOT TELLING STAFF IN TIME WHEN NEEDING TO VOID OR HAVE A BM. PT HAD TO HAVE A COMPLETE BED CHANGE THIS AM, THIS AFTERNOON HAS USED URINAL APPROPRIATELY. HOWEVER PT CAME TO WORK WITH PT AND HE DID NOT WANT TO DO WHAT WAS ASKED AND WAS REFUSING. PT WAS EDUCATED ON HIS CONDITION WORSENING IF HE DOES NOT ATTEMPT MOBILITY. HE HAS ALSO BEEN PICKING AT HIS FOOD PT STATES HE "DIDN'T SLEEP WELL LAST NIGHT" JUST WANTS TO SLEEP. IV ABX WAS DC'D AND PT IS ON ORAL ABX BUT ON IV FLUID DOWN TO 50ML/HR.
--- NOTE | 2022-09-14 19:30 | NUR ---
SHIFT REPORT RECEIVED FROM NENA ANDREWS. PT CALLS TO REPORT HE HAS URINATED IN HIS BED. COMPLETE BED AND GOWN CHANGE COMPLETED. PT EDUCATION PROVIDED CONCERNING URINAL USE, CALL LIGHT AND SKIN CARE. PT DOES NOT REPSOND IN THE CONVERSATION. ICE WATER PROVIDED. NO OTHER NEEDS. CALL LIGHT IN REACH.
--- NOTE | 2022-09-14 22:00 | NUR ---
SCHEDULED MEDS PROVIDED. PT REPOSITIONED. ASSESSMENT COMPLETED. PT DECLINES TO PARTICIPATE IN CARES AND KEEPS ASKING "ARE YOU DONE YET?" WHILE COMPLETING HIS ASSESSMENT. SKIN CARE AND ELIMINATION EDUCATION PROVIDED. WATER PROVIDED. NO OTHER NEEDS. CALL LIGHT IN REACH.
--- NOTE | 2022-09-15 | NUR ---
PT RESTING IN THOMAS EYES CLOSED. PT DECLINES TO BE REPOSITIONED. NC @ 1L. CALL LIGHT IN REACH.
--- NOTE | 2022-09-15 03:30 | NUR ---
PT RESTING IN BED. ASSESSMENT COMPLETED. PT REPOSITIONED. NC @ 1L. CALL LIGHT IN REACH.
--- NOTE | 2022-09-15 05:00 | NUR ---
PT RESTING IN BED. PT REPOSITIONED. WATER PROVIDED. NO OTHER NEEDS. CALL LIGHT IN REACH.
--- NOTE | 2022-09-15 06:22 | NUR ---
SCHEDULED MEDS PROVIDED. PT INCONTINENT OF URINE, BED CHANGE AND BRIEF CHANGE PROVIDED. PT STATES HE "PEES SOON YOU LEAVE THE ROOM" AND THAT THE MEDS ARE CAUSING HIM TO BE INCONTINENT. PT EDUCATED TO CALL SOON HE NEEDS TO USE THE URINAL OR SOON HE IS INCONTINENT. ICE WATER PROVIDED. CALL LIGHT IN REACH.
--- NOTE | 2022-09-15 07:22 | NUR ---
REPORT RECEIVED FROM CELESTE ANDREWS, ALL QUESTIONS ANSWERED. PT LYING AWAKE IN BED. DISCUSSED PLAN OF CARE FOR DAY. PT DENIES NEEDS AT THIS TIME. CALL LIGHT IN REACH.
--- NOTE | 2022-09-15 09:23 | NUR ---
MORNING ASSESSMENT COMPLETE. PT SLOW TO RESPOND TO QUESTIONS. ALERT TO SELF AND SITUATION. UNABLE TO CORRECTLY STATE DATE OR PLACE. 3+ EDEMA TO BLE UP TO ABD. 4+ SCROTAL AND PENILE EDEMA. PT DENIES PAIN AT THIS TIME. ON 1LNC O2. EXP WHEEZES HEARD. PT DENIES NEEDS AT THIS TIME. CALL LIGHT IN REACH, BREAKFAST AT BEDSIDE.
--- NOTE | 2022-09-15 13:28 | NUR ---
PT RESTING WITH EYES CLOSED IN BED, EASILY AWAKENS. DISORIENTED TO PLACE AND TIME. ORIENTED TO SELF AND SITUATION. PT REFUSES LUNCH. PT DENIES FURTHER NEEDS AT THIS TIME. CALL LIGHT IN REACH.
--- NOTE | 2022-09-15 15:33 | NUR ---
PATIENT CHANGED OF INCONTINENT ATTENDS, REPOSITIONED IN BED. PATIENT GIVEN ORAL LACTULOSE AND DISPLAYED A COUGH IMMEDIATELY AFTER. VITALS AND I/O COMPLETE.
--- NOTE | 2022-09-15 16:30 | NUR ---
PT BRIEF CHANGED FROM INCONTIENCE, MOVED TO CHAIR VIA RISSA LIFT. PT TOLERATED WELL. CALL LIGHT IN REACH. PT DENIES FURTHER NEEDS AT THIS TIME.
--- NOTE | 2022-09-15 17:49 | NUR ---
PT IN CHAIR, DROWSY, YET EASILY AWAKENS. PT REFUSES DINNER X3 ATTEMPTS. PT ORIENTED TO PERSON, PLACE AND TIME. PT DENIES FURTHER NEEDS AT THIS TIME. CALL LIGHT IN REACH.
--- NOTE | 2022-09-15 18:25 | NUR ---
SPOKE WITH DR HAMPTON REGARDING PT INCREASED EXP WHEEZE NOTED AND POTENTIAL ASPIRATION DURING PREVIOUS MEDICATION ADMINISTRATION. O2 SAT 97% ON 3LNC, RR 20. ORDER TO CONTINUE PRN DUO NEBS ORDERS NEEDED, DC IV FLUIDS AND ADDITIONAL DOSE LACTULOSE, SEE EMAR. NO FURTHER ORDERS AT THIS TIME.
--- NOTE | 2022-09-15 19:32 | NUR ---
RECEIVED REPORT FROM DAY SHIFT RN. PATIENT IS RESTING IN RECLINER. NO NEEDS NOTED. CALL LIGHT IN REACH.
--- NOTE | 2022-09-15 21:00 | NUR ---
PATIENT ASSSEMENT COMPLETED. PATIENT HOYERED A 2PA TO BED FROM RECLINER. PATIENT INCONT URINE AND STOOL. PATIENT GIVEN BED BATH. CLEAN ATTEND IN PLACE. SCROTUM ELEVATED ON TOWEL DUE TO SWELLING. PATIENT IS ON 2L VIA NC. PATIENT DENIES ANY SOB. PATIENT DENIES ANY PAIN. PATIENTS PM MEDS GIVEN PER ORDER. PATIENTS IV X2 FLUSHED AND SL PER ORDER. PATIENT IS RESTING IN BED WATCHING TV. NO FURTHER NEEDS NOTED. CALL LIGHT IN REACH. BED ALARM ON FOR SAFETY PATIENT IS DISORIENTED TO DATE AND TIME. PATIENT IS FORGETFUL.
--- NOTE | 2022-09-15 22:35 | NUR ---
PATIENT IS RESTING IN BED WATHCING TV. NO NEEDS NOTED. CALL LIGHT IN REACH. BED ALARM ON FOR SAFETY.
--- NOTE | 2022-09-15 23:23 | NUR ---
SCHEDULED MEDS GIVEN PER ORDER. PATIENT IS RESTING IN BED. NO NEEDS NOTED. ATTEND IS DRY AT THIS TIME. NO NEEDS NOTED. CALL LIGHT IN REACH. BED ALAMR ON FOR SAFETY.
--- NOTE | 2022-09-16 00:44 | NUR ---
PATIENT IS RESTING IN BED WITH EYES CLOSED, RR 17. CALL LIGHT IN REACH. BE ALARM ON FOR SAFETY.
--- NOTE | 2022-09-16 02:45 | NUR ---
PATIENT INCONT URINA AND STOOL. PATIENTS ATTEND [facility] AND [facility] COMPLETED. PATIENT REPOSITIONED IN BED. PATIENT DENIES ANY FURTHER NEEDS. PATIENT STATED " HOW DID YOU FIND ME". PATIENT REORIENTED. CALL LIGHT IN REACH. BED ALARM ON FOR SAFETY.
--- NOTE | 2022-09-16 04:32 | NUR ---
PATIENT IS RESTING IN BED WATCHING TV. PATIENTS ATTEND IS DRY. PATIENT DENIES ANY NEEDS. CALL LIGHT IN REACH. BED ALARM ON FOR SAFETY.
--- NOTE | 2022-09-16 06:39 | NUR ---
PATIENTS VITALS TAKEN AND RECORDED. PATIENT INCONT STOOL AND URINE. PATIENTS ATTEND CHANGED AND [facility]STI CARE COMPLETED. PATIENT REPOSITIONED IN BED. FRESH ICE WATER PROVIDED. NO FURTHER NEEDS NOTED. CALL LIGHT IN REACH. BED ALARM ON FOR SAFETY.
--- NOTE | 2022-09-16 07:42 | NUR ---
REPORT RECIEVED FROM DARRYL LINDSEY. PT IN BED, AWAKE BUT CONFUSED. WATCHING THE TV GUIDE UNAWARE OF ENVIROMENT. JUST LAUGHED WHEN INTRODUCED MYSELF.
--- NOTE | 2022-09-16 08:43 | NUR ---
administered morning meds. pt confused but answers some questions appropriatly. pt states he has not slept and would like to take a nap. advised to atleast take a couple of bites of breakfast as he had insulin. assisted to take a few bites of eggs.
--- NOTE | 2022-09-16 08:59 | NUR ---
PT CALLED AND WAS SOUNDING A LITTLE CONFUSED, HE HAD HIS OXYGEN OUT OF HIS NOSE, GOT HIM SET BACK UP ON OXYGEN AND GOT HIS BLANKETS SET UP AND HE IS NOW EATING BREAKFAST AND HAS HIS CALL LIGHT.
--- NOTE | 2022-09-16 10:24 | NUR ---
ASSISTED MANAGEMENT INFORMATION SYSTEMS DIRECTOR CELI WITH STANDING PT AT BEDSIDE. PT DID NOT DO WELL AND WAS UNABLE TO PIVOT TO BSC. PT DID NOT COMPREHEND THE USE OF THE WALKER. CHANGED PT DEPENDS. MEMO AND TONNY.
--- NOTE | 2022-09-16 13:00 | NUR ---
PT DOES NOT WANT TO EAT HIS LUNCH, STATES "ITS CRAP". ADVISED TO ATLEAST DRINK HIS MILK FOR A LITTLE PROTIEN. OR COULD GET HIM AN ENSURE.
--- NOTE | 2022-09-16 13:41 | NUR ---
PT HAD ANOTHER BM. DID ANOTHER FULL BED CHANGE. PT CONFUSED TO LOCATION AND AGE. STATES HIS MOM IS 30 AND WOULD NOT COME IN TO THIS HOUSE. STATES HE NEEDS TO GO TO ANOTHER HOUSE TO FIND HIS KIDS.
--- NOTE | 2022-09-16 16:07 | NUR ---
INTO SPEAK WITH PATIENT. PATIENT MAINTAINS HE WILL BE RETURNING HOME AT DISCHARGE. WILL CONTINUE TO MONITOR PT UPDATES FOR FURTHER DC DISPOSITION.
--- NOTE | 2022-09-16 19:33 | NUR ---
RECEIVED REPORT FROM DAY SHIFT RN. PATIENT IS RESTING IN BED WATCHING TV. NO NEEDS NOTED. CALL LIGHT IN REACH. BED ALARM ON FOR SAFETY.
--- NOTE | 2022-09-16 21:26 | NUR ---
PATIENT ASSESMENT COMPLETED. PATIENTS VITALS TAKEN AND RECORDED. PATIENT INCONT OF URINE. PATIENTS ATTEND CHANGED AND [facility]STI CARE COMPLETED. PM MEDS GIVEN PER ORDER. IV FLUSED AND SL X2 PER ORDER. THIS RN ASKED PATIENT IF HIS MOTHER CAME TO VISIT HIM. PATIENT STATED "DONT BE A FUCKING DUMBASS". PATIENT ONLY ORIENT TO SELF. PATIENT ABLE TO STATE HE IS IN [place]. PATIENT STATED " WHY WOULD YOU TAKE ME TO THIS SHITHOLE". THIS RN ATTEMPTED TO REORIENT PATIENT. PATIENT REMAINS ONLY ORIENTED TO SELF. NO FURTHER NEEDS NOTED. CALL LIGHT IN REACH. BED ALARM ONFOR SAFETY.
--- NOTE | 2022-09-16 22:33 | NUR ---
PATIENT IS RESTING IN BED WATCHINT TV. PATIENT DENIES ANY NEEDS. ATTEND IS DRY AT THIS TIME. CALL LIGHT IN REACH. BED ALARM ON FOR SAFETY.
--- NOTE | 2022-09-17 00:05 | NUR ---
PATIENT IS RESTING IN BED WATCHING TV. PATIENTS ATTEND DRY AT THIS TIME. PATIENT REPOSITIONED IN BED. PATIENT DENIES ANY NEEDS. CALL LIGHT IN REACH. BED ALARM ON FOR SAFETY.
--- NOTE | 2022-09-17 02:23 | NUR ---
PATIENT IS RESTING IN BED WITH EYES CLOSED, RR 17. CALL LIGHT IN REACH. BED ALARM ON FOR SAFETY.
--- NOTE | 2022-09-17 04:32 | NUR ---
PATIENT REPOSITIONED IN BED. PATIENTS ATTEND IS DRY AT THIS TIME. PATIENT DENIES ANY NEEDS. CALL LIGHT IN REACH. BED ALARM ON FOR SAFETY.
--- NOTE | 2022-09-17 06:00 | NUR ---
VITALS TAKEN AND RECORDED. PATIENT INCONT OF URINE AND STOOL. [facility]. AM MEDS PER ORDER. PATIENT ABLE TO STATE WHAT CITY HE IS IN BUT THINKS HE IS IN AN APARTMENT. REORIENTED PATIENT. PATIENT IS ON 2L VIA NC. PATIENTS AM MEDS PER ORDER. PATIENT DENIES ANY NEEDS CALL LIGHT IN REACH. FRESH ICE AND WARM BLANKET PROVIDED. BED ALARM ON FOR SAFETY. CALL LIGHT IN REACH.
--- NOTE | 2022-09-17 06:36 | NUR ---
PATIENT IS RESTING IN BED WATCHING TV. PATIENT DENIES ANY NEEDS. CALL LIGHT IN REACH. BED ALARM ON FOR SAFETY.
--- NOTE | 2022-09-17 07:15 | NUR ---
BEDSIDE REPORT FROM ROSALIA RN, PT CALL LIGHT IN REACH AND BED ALARM ON. DENIES NEEDS.
--- NOTE | 2022-09-17 08:07 | NUR ---
Texted JACQUELINE at [facility] and asked if they will be able to take this pt?
--- NOTE | 2022-09-17 08:54 | NUR ---
PT CONFUSED, ASKS ME HOW MANY MAY 1STS ARE IN THE MONTH OF NOVEMBER? HE GETS ANGRY THAT i EXPLAIN AND YELLS THAT THERE ARE [address] JAY OFFICE CALLS PT AND TRYS TO GIVE HIM MEDICATION INSTRUCTIONS FOR HOME NOT KNOWING HE IS CONFUSED AND IN HOSPITAL - THIS RN GETS PERMISSION FROM PT TO TALK VIA SPEAKER PHONE TO LET OFFICE KNOW UPDATES. MEDS GIVEN AND ASSESSMENT DONE.
--- NOTE | 2022-09-17 11:50 | NUR ---
In room and spoke with pt and his mom. PT attempting to work with pt. Pt angry and snapping at PT, lady I can't get out of the trunk. Pt believes he has been sitting in truck for, 4 days. I attempted to explain to Carlitos, PT would like him to sit on the edge of the bed. He again becomes very angry. He does with chiding from his mother, sit on the edge of the better. He requires help with his legs. Mom states, pt sister is working with [employer]. Mom states pt cannot come home if he cannot pivot transfer. She is unable to lift him. Pt is tall and heavy. We discussed he will not be able to go to a SNF for rehab if he is confused. I asked if he has money for placement to an [facility]. Mom states she thinks he could have the money for 1 month. We discuss with MD and therapy to see where pt is for rehab and ambulation.
--- NOTE | 2022-09-17 12:00 | NUR ---
this rn, sonya em, and pt krista in to trsf pt from bed to bs, to for am personal cares, bm, and to for lunch. linen changed, bed bath given - pt not participaing, confused. sits at edge of bed better today on own with great coaching. PT krista used sit to stand with 3 person assist to [place] [facility] [place] he was inc. of urnine and stool in bed. pt then trsf to using sit to stand again- then set up for meal. pt skin intack on posterier body - +3 edema all over - shahrzad area excessive edema in penis/scrotum area. all skin intact and cleaned. pt mother present for therapy and cares and continues through lunch. call light in reach with her in room as he is confused. noted to be heavy max assist and great coaching and encouragement needed.
--- NOTE | 2022-09-17 15:15 | NUR ---
PT RESTING IN BED, AWAKEN FOR ORAL BP MEDS. PT SWALLOWS WELL, BED ALARM ON.
--- NOTE | 2022-09-17 18:30 | NUR ---
PT AWAKEN, HOB UP FOR MEAL - PT STILL CONFUSED TO DATE, TIME AND REASON FOR ADMIT. BED ALARM ON. CALL LIGHT IN REACH, DENIES NEEDS -
--- NOTE | 2022-09-17 19:31 | NUR ---
RECEIVED REPORT FROM DAY SHIFT RN. PATIENT IS RESTING IN BED WATCHING TV. NO NEEDS NOTED. CALL LIGHT IN REACH. BED ALARM ON FOR SAFETY.
--- NOTE | 2022-09-17 21:45 | NUR ---
PATIENT ASSESMENT COMPLETED. PATIENT IS RESTING IN BED WATCHING TV. PATIENTS VITALS TAKEN AND RECORDED. PATIENT INCONT OF URINE, ATTEND CHANGED, AND [facility] CARE COMPLETED. PATIENTS PM MEDS PER ORDER. PATIENT IS ON RA. PATIENT ASSISTED TO POSTION ON HIS LEFT SIDE. NO FURTHER NEEDS NOTED. WARM BLANKET AND FRESH ICE WATER PROVIDED. CALL LIGHT IN REACH. BED ALARM ON FOR SAFETY.
--- NOTE | 2022-09-17 23:01 | NUR ---
PATIENT IS RESTING IN BED WITH EYES CLOSED, RR 18. CALL LIGHT IN REACH. BED ALARM ON FOR SAFETY.
--- NOTE | 2022-09-18 02:26 | NUR ---
PATIENT INCONT URINE. ATTEND CHANGED AND [facility]ST[facility] CARE COMPLETED. PATIENT REPOSITIIONED IN BED. PATIENT DENIES ANY PAIN. PATIENT PROVIDED WITH FRESH ICE WATER. NO FURTHER NEEDS NOTED. CALL LIGHT IN REACH.
--- NOTE | 2022-09-18 03:57 | NUR ---
PATIENT IS RESTING IN BED WITH EYES CLOSED, RR 17. CALL LIGHT IN REACH. BED ALARM ON FOR SAFETY.
--- NOTE | 2022-09-18 05:54 | NUR ---
PATIENTS VITALS TAKEN AND RECORDED. PATIENTS ATTEND IS DRY A THIS TIME. INTAKE AND OUTPUT RECORED. AM MEDS PER ORDER. PATIENT DENIES ANY NEEDS. CALL LIGHT IN REACH. BED ALARM ON FOR SAFETY.
--- NOTE | 2022-09-18 06:35 | NUR ---
PATIENT IS RESTING IN BED WITH EYES CLSOED, RR 16. CALL LIGHT IN REACH. BED ALARM ON FOR SAFETY.
--- NOTE | 2022-09-18 07:15 | NUR ---
report from edilson hussein, pt in bed with call light in reach - resting, resp even.
--- NOTE | 2022-09-18 08:30 | NUR ---
pt attends checked - inc urine/stool - pt changed with 2 person assist - follows commands with coaching, he is in a grumpy mood swearing and grumbling about being inct. of stool and confused about breakfast coming up. he does however know the date and year at this time. skin wnl - exception of massive amt of scrotal/penis edema and gen. body edema. after am care pt sat up in bed, hob up and rn assisted with meds and meal. pt not very motivated - has to be coached to drink water and move hands to hold cup.
--- NOTE | 2022-09-18 10:34 | NUR ---
PRINTED EDUCATION MATERIAL PROVIDED TO ROOM FOR PT MOTHER PER HER REQUEST YESTERDAY. SEE DC PLAN SUMMARY FOR TOPICS. (38 PG)
--- NOTE | 2022-09-18 13:00 | NUR ---
Spoke with Carlitos and he able to recognize me today. Mom present and wants to know if we have a notary as pt is alert and would like to sign a POA. Called Zenaida Sanders and she states she will assist them now. Mom notified and has paperwork. Mom states daughter will be POA, let her know the daughter must be her to sign papers and mom states she will be the POA. Carlitos is in agreement.Discussed with Carlitos where he wants to go when he leaves here and he is in agreement to go to a SNF or an LONG TERM. He does believe he can participate in PT. Let him know I spoke with JACQUELINE at [facility] and they will accept him if he is not confused. Will follow up with pt tomorrow to check if he cont. to clear mentally.
--- NOTE | 2022-09-18 13:39 | NUR ---
educated pt mom diogo at bedside about diagnosis education print outs - she is asking for assistance with [facility] for a POA. regina from [facility] [employer] notified and was talking to diogo - pt is in bed with mom by side - denies needs, unable to move about, or motivated or strong enought to get out of bed. denies needs.
--- NOTE | 2022-09-18 19:42 | NUR ---
RECEIVED REPORT FROM DAY SHIFT RN. PATIENT IS RESTING IN BED WATCHING TV. NO NEEDS NOTED. CALL LIGHT IN REACH.
--- NOTE | 2022-09-18 21:55 | NUR ---
PATIENT ASSESMENT COMPLETED. VITALS TAKEN AND RECORDED. PATIENTS ATTEND IS DRY AT THIS TIME. PM MEDS PER ORDER. PATIENT IS ON RA. X2 IV FLUSHED AND SL PER ORDER. PATIENT DENIES ANY PAIN. PATIENT REPOSITIONED IN BED. WARM BLANKET PROVIDED. NO FURTHER NEEDS NOTED. CALL LIGHT IN REACH.
--- NOTE | 2022-09-18 22:48 | NUR ---
PATIENT INCONT OF STOOL AND URINE. PATIENTS ATTEND [facility]ANGED AND [facility] CARE COMPLETED. PATIENT REPOSITIONED IN BED. PATINET PROVIDED WITH WARM BLANKETS. NO FURTHER NEEDS NOTED. CALL LIGHT IN REACH. BED ALARM ON FOR SAFETY.
--- NOTE | 2022-09-19 00:33 | NUR ---
PATIENT IS RESTING IN BED WITH EYES CLSOED, RR 16. CALL LIGHT IN REACH. BED ALARM ON FOR SAFETY.
--- NOTE | 2022-09-19 03:07 | NUR ---
PATIENT ASSISTED TO REPOSITION. PATIENT IS NOW LAYING ON HIS LEFT SIDE. NO FURTHER NEEDS NOTED. SEVEN UP PROVIDED AND FRESH WATER PER PATIENT REQUEST. CALL LIGHT IN REACH.
--- NOTE | 2022-09-19 04:27 | NUR ---
PATIENT INCONT OF STOOL AND URINE. CHRISTI CARE COMPLETED. PATIENT REPOSITIONED ON HIS RIGHT SIDE. NO FURTHER NEEDS NOTED. CALL LIGHT IN REACH.
--- NOTE | 2022-09-19 06:16 | NUR ---
PATIENTS AM MEDS PER ORDER. ATTEND IS DRY AT THIS TIME. PATIENT DENIES ANY FURTHER NEEDS. CALL LIGHT IN REACH. FRESH ICE WATER PROVIDED.
--- NOTE | 2022-09-19 08:16 | NUR ---
RECIEVED SHIFT REPORT. PT LAYING IN BED, AWAKE. CONSIDERED GETTING PT UP INTO RECLINER. PT AGREEABLE TO THIS. CALL LIGHT WITHIN REACH. DENIES FURTHER NEEDS.
--- NOTE | 2022-09-19 09:16 | NUR ---
MORNING ASSESSMENT COMPLETE. PT TRANSFERRED TO RECLINER, RISSA, 2PA. EDEMA PRESENT BILAT LOWER EXT 3+, HIPS 2+. LUNG SOUNDS CLEAR BILAT UPPER, CLEAR/DIM BILAT LOWER. DENIES PAIN AT THIS TIME. STATES IS COMFORTABLE IN THE RECLINER. CALL LIGHT WITHIN REACH. DENIES FURTHER NEEDS.
--- NOTE | 2022-09-19 11:41 | NUR ---
PT RESTING IN CHAIR, EYES CLOSED. BREATHING EVEN AND UNLABORED. FAMILY AT BEDSIDE. CALL LIGHT WITHIN REACH.
--- NOTE | 2022-09-19 13:00 | NUR ---
Pt slowly clearing mentally. Oriented today and able to state he is willing to go to SNF. Let him know he has been accepted by [facility] tomorrow. Pt in agreement.
--- NOTE | 2022-09-19 14:22 | NUR ---
PT ASLEEP IN CHAIR. DID NOT DISTURB, WILL FOLLOW
--- NOTE | 2022-09-19 14:43 | NUR ---
PT IN RECLINER, AWAKE. ENJOYS SITTING IN THE CHAIR. CALL LIGHT WITHIN REACH. DENIES FURTHER NEEDS.
--- NOTE | 2022-09-19 16:29 | NUR ---
AFTERNOON ASSESSMENT COMPLETE. NO NEW CHANGES SINCE MORNING ASSESSMENT. PT REQUESTED TO STAY IN RECLINER. CALL LIGHT WITHIN REACH. DENIES FURTHER NEEDS. DENIES PAIN.
--- NOTE | 2022-09-19 16:30 | NUR ---
Notified by JACQUELINE he has submitted auth to [employer]. He would like pt to arrive at 11:00 tomorrow. Called the van, openings for 0900 or 1:30. JACQUELINE would like 1:30 as he is concerned auth will not be completed by 9. Transport scheduled for 1:30.
--- NOTE | 2022-09-19 17:33 | NUR ---
PT HAD NO PRN TREATMENTS TODAY ON RA
--- NOTE | 2022-09-19 19:07 | NUR ---
RECEIVED REPORT FROM DEBRA ANDREWS. PT RESTING IN CHAIR W/EYES CLOSED BUT AWAKENS TO VOICE. PT REPORTS NO NEEDS AT THIS TIME, CALL LIGHT WITHIN REACH.
--- NOTE | 2022-09-19 20:15 | NUR ---
IN TO ASSIST PT OFF OF BEDPAN, VS TAKEN, RN IN RM FOR MEDS, WARM BLANKET PROVIDED, NO FURTHER NEEDS AT THIS TIME
--- NOTE | 2022-09-19 20:30 | NUR ---
IN PT ROOM FOR ASSESSMENT, RUNNING RIGGER, AND TO MOVE PT FROM RECLINER TO BED VIA RISSA LIFT. PT TOLERATED WELL. PT REPORTS NO PAIN, NAUSEA, SOB, NEW N/T (CHRONIC NUMBNESS IN FEET PER PT), DIZZINESS. VSS. +3 EDEMA IN LOWER EXTREMETIES, NONPITTING EDEMA IN SCROTUM, AND +2 EDEMA IN HIPS REGION. ABDOMEN IS DISTENDED D/T ASCITES AND FIRM, BOWEL TONES ACTIVE X4. PULSES PRESENT THROUGHOUT, LUNGS ARE CLEAR THROUGHOUT BUT DIMINISHED IN BASES. PT EXPERIENCES SOB W/MVMNT BUT RESOLVES W/REST, O2 SATS >90%. PT IS A&O X4. WEAKNESS PRESENT THROUGHOUT. BOTH IV SITE SALINE LOCKED, LFT EXPERIENCES SLIGHT BURNING W/FLUSH. LEGS ELEVATED ON PILLOW. ASSISTED PT TO SIDE LYING POSITION, PILLOW UNDER LEGS. CALL LIGHT WITHIN REACH, NO FURTHER NEEDS AT THIS TIME.
--- NOTE | 2022-09-19 22:45 | NUR ---
IN PT ROOM FOR BUSINESS ANALYTICS ANALYST. ASSISTED PT ONTO BEDPAN FOR BM, SMALL BM RECORDED. CHRISTI CARE PERFORMED. FRESH WATER PROVIDED. ASSISTED PT BACK TO SIDE LYING POSITION. CALL LIGHT WITHIN REACH, NO FURTHER NEEDS AT THIS TIME.
--- NOTE | 2022-09-20 01:03 | NUR ---
IN PT ROOM FOR ASSISTANCE ONTO BEDPAN. SMALL BM RECORDED, CHRISTI CARE PERFORMED. BOOSTED PT IN BED. ASSISTED PT TO LAYING ON LFT SIDE. PILLOW UNDER LEGS FOR EDEMA. CALL LIGHT WITHIN REACH, NO FURTHER NEEDS AT THIS TIME.
--- NOTE | 2022-09-20 03:10 | NUR ---
PT RESTING W/EYES CLOSED. RESPIRATIONS ARE EVEN AND UNLABORED, NO SIGNS OF DISTRESS. CALL LIGHT WITHIN REACH.
--- NOTE | 2022-09-20 05:25 | NUR ---
IN PT ROOM FOR APPLIED SCIENCE AND TECHNOLOGIES DEAN AND MOVING FROM BED TO CHAIR. 2PA W/RISSA LIFT FROM CHAIR TO BED. PT GIVEN WARM PACK AND BLANKETS. PT STATES PAIN IN ABDOMEN AT THIS TIME, WARM PACK PROVIDED, PT STATES PROVIDED RELIEF. NO ACUTE CHANGES FROM PREVIOUS ASSESSMENT. PT ABDOMEN DISTENDED D/T ASCITES, W/INCREASE TIGHTNESS AT SIDES AT THIS TIME. PT STATES ABDOMEN IS TENDER. BOWEL TONES ACTIVE X4. SWELLING IN LOWER EXTREMETIES REMAINS 3+. CALL LIGHT WITHIN REACH, ICE WATER PROVIDED, NO FURTHER NEEDS AT THIS TIME.
--- NOTE | 2022-09-20 07:34 | NUR ---
RECIEVED SHIFT REPORT. PT IN RECLINER, STATES STOMACH HURTS 06/24, BUT SAYS HES "NOT WORRIED ABOUT IT". PT DOES STATE HE HASNT FELT THIS PAIN BEFORE. CALL LIGHT WITHIN REACH. PT REASSURED THIS RN WILL FOLLOW UP.
--- NOTE | 2022-09-20 08:11 | NUR ---
Patient in chair when this garment manufacturer came onto shift. Am care already completed. Call light within reach.
[2022-09-20] MEDS ORDERED: IPRAT-ALBUT 0.5-3 ML INH (08:43)
[2022-09-20] MEDS ORDERED: XIFAXAN550 MG PO (08:43)
[2022-09-20] MEDS ORDERED: MIDODRINE HCL5 MG PO (08:44)
[2022-09-20] MEDS ORDERED: LACTULOSE20 GM/30 M PO (08:45)
[2022-09-20] MEDS ORDERED: JANUVIA100 MG PO (08:46)
--- NOTE | 2022-09-20 09:20 | NUR ---
CALLED DEVONTE, GAVE REPORT TO NELI. ALL QUESTIONS ANSWERED.
== END 2022-09-20 09:05 | DRG 193 ==
LOC: ED 09:43 → MS 12:30 → CCU 12:30 → MS 09-13 10:40
PROVIDERS: ADMIT Internal Medicine; ATTEND Family Medicine
DX: J18.9 Pneumonia, unspecified organism (principal); G93.41 Metabolic encephalopathy; N17.9 Acute kidney failure, unspecified; I95.9 Hypotension, unspecified; Z20.822 Contact with and (suspected) exposure to COVID-19; K70.31 Alcoholic cirrhosis of liver with ascites; F41.9 Anxiety disorder, unspecified; E11.40 Type 2 diabetes mellitus with diabetic neuropathy, unspecified; E87.5 Hyperkalemia; F32.A Depression, unspecified; I82.462 Acute embolism and thrombosis of left calf muscular vein; G89.4 Chronic pain syndrome; Z98.890 Other specified postprocedural states; Z79.4 Long term (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; Z79.01 Long term (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 of anticoagulants; Z79.899 Other long term (current) drug therapy
CPT/HCPCS: 36415; 71045; 71046; 80048; 80053; 80076; 80202; 81003; 82140; 83605; 83735; 85025; 85610; 87040; 87070; 87205; 87502; 93005; 93010; 94640; 94760; 97161; 97167; 97530; A9270; C9803; J0692; J0696; J1815; J2354-JA; J2405; J3370; J3475; J7030; J7060; P9047; U0003

== ENCOUNTER 2022-09-30 21:10 | Emergency (ER) | payer OTHER ==
[~2022-09-30] VITALS: Ht 200.7 cm; Wt 115.2 kg
[~2022-09-30 21:10] MED LIST changes: +FUROSEMIDE40 MG PO; +INSULIN GL100 UNIT/2 SUB-Q; +IPRAT-ALBUT 0.5-3 ML INH; +JANUVIA100 MG PO; +LACTULOSE20 GM/30 M PO; +XIFAXAN550 MG PO
--- OUTSIDE RECORDS SUMMARY | 2022-09-30 21:14 | XMS ---
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 09/29/2020-Current PHONE: Unknown JOSE MATA [facility] Current PHONE: [phone] CINDY BRAXTON Nurse Practitioner: Family Current PHONE: Unknown ERLINDA SINGLETARY Internal Medicine Current PHONE: [phone] ASHLEE NOLEN Nurse Practitioner: Family Current PHONE: [phone] CLAY SOLOMON Nurse Practitioner Current [place] PHONE: [phone] HECTOR [facility] Current PHONE: Unknown CLAY [facility] Current PHONE: [phone] [place] has no Care Guidelines for this patient. Mary VISIT COUNT (12 MO.) 9 SIENA Fung TOTAL 9 NOTE: Visits indicate total known visits. 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 - Contact with and (suspected) exposure to COVID-19 - Type 2 diabetes mellitus with diabetic neuropathy, unspecified - Hypomagnesemia - Other manager terminal (current) drug therapy - Alcoholic cirrhosis of liver with ascites - MCC (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 of oral hypoglycemic drugs - Chronic hepatic failure without coma 08/11/2022 19:51 [facility] [place] TYPE: Emergency COMPLAINT: - WEAKNESS, DIARRHEA 06/15/2022 13:39 [facility] [place] TYPE: Emergency COMPLAINT: - SWOLEN THROAT,RIB PAIN 04/26/2022 17:45 [facility] [place] TYPE: Emergency COMPLAINT: - CHEST INJ DIAGNOSES: - Chest pain, unspecified - Contusion of middle front wall of thorax, initial encounter - MCC (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 - Fall on same level from slipping, tripping and stumbling without subsequent striking against object, initial encounter - Essential (primary) hypertension - Type 2 diabetes mellitus with diabetic polyneuropathy - Other manager terminal (current) drug therapy 01/07/2022 13:15 [facility] [place] TYPE: Emergency COMPLAINT: - BOTH ANKLES SWOLLEN DIAGNOSES: - MCC (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 - Localized edema - Essential (primary) hypertension - Type 2 diabetes mellitus without complications - Other mcfp (current) drug therapy 12/27/2021 07:00 [facility] TYPE: Emergency COMPLAINT: - ALTERED MENTAL STATUS 10/13/2021 00:20 [facility] TYPE: Emergency COMPLAINT: - FALL INPATIENT VISIT TRACKING (12 MO.) 09/12/2022 12:30 [facility] TYPE: Medical Surgical COMPLAINT: - HYPERKALEMIA, PNEUMONIA DIAGNOSES: - Hyperkalemia - 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 - Acute embolism and thrombosis of left calf muscular vein - Other manager terminal (current) drug therapy - Contact with and (suspected) exposure to COVID-19 - Metabolic encephalopathy - Other specified postprocedural states - Hypotension, unspecified - Hyperkalemia - Pneumonia, unspecified organism - Alcoholic cirrhosis of liver with ascites - MCC (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 - Acute kidney failure, unspecified - 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 - Type 2 diabetes mellitus with diabetic neuropathy, unspecified - Other specified postprocedural states - Alcoholic cirrhosis of liver with ascites - Acute embolism and thrombosis of left calf muscular vein - Other mcfp (current) drug therapy - Chronic pain syndrome - Depression, unspecified - Type 2 diabetes mellitus with diabetic neuropathy, unspecified - MCC (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 of anticoagulants - Acute kidney failure, unspecified - Metabolic encephalopathy - Chronic pain syndrome - Anxiety disorder, unspecified - Anxiety disorder, unspecified - Depression, unspecified - Contact with and (suspected) exposure to COVID-19 - Hypotension, unspecified 08/12/2022 12:[address] 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 - Hyperkalemia - Alcohol abuse, uncomplicated - Chronic hepatic failure without coma 06/15/2022 17:34 [facility] TYPE: Medical Surgical COMPLAINT: - PNEUMOTHORAX DIAGNOSES: - Alcohol abuse, uncomplicated - Other manager terminal (current) drug therapy - Fatty (change of) liver, not elsewhere classified - Contact with and (suspected) exposure to COVID-19 - 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 - Fall on same level, unspecified, initial encounter - Other specified postprocedural states - Traumatic subcutaneous emphysema, initial encounter - Essential (primary) hypertension - Type 2 diabetes mellitus with diabetic neuropathy, unspecified - Fall on same level, unspecified, initial encounter - Other specified postprocedural states - 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 - [...] and (suspected) exposure to COVID-19 - Other manager terminal (current) drug therapy - Traumatic pneumothorax, initial encounter - 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 - Essential (primary) hypertension - Type 2 diabetes mellitus with diabetic neuropathy, unspecified - 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 12/27/2021 11:05 [facility] TYPE: Medical Surgical COMPLAINT: - ALCOHOLIC HEPATITIS ENCEPHALOPATHY DIAGNOSES: - MCC (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 - Anxiety disorder, unspecified - Dehydration - Type 2 diabetes mellitus without complications - Alcohol dependence with withdrawal, unspecified - 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 - Other manager terminal (current) drug therapy - Depression, unspecified - Hypo-osmolality and hyponatremia - Contact with and (suspected) exposure to COVID-19 - Depression, unspecified - Alcoholic cirrhosis of liver without ascites - Metabolic encephalopathy - Essential (primary) hypertension - Contact with and (suspected) exposure to COVID-19 - Essential (primary) hypertension - Alcoholic cirrhosis of liver without ascites - Other manager terminal (current) drug therapy - Alcoholic hepatic failure without coma - Alcoholic hepatitis without ascites - Metabolic encephalopathy - Type 2 diabetes mellitus without complications - Alcoholic hepatitis without ascites - Hypo-osmolality and hyponatremia - Anxiety disorder, unspecified - Dehydration - Alcohol dependence with withdrawal, unspecified 10/13/2021 10:[address] 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
[2022-09-30] MEDS ORDERED: GAVILYTE-G SO4000 ML PO (21:29)
[2022-09-30] MEDS ORDERED: SPIRONOLACTONE50 MG PO (21:29)
== END 2022-09-30 23:52 | disposition home or self-care (01) ==
LOC: ED 21:10
DX: K72.90 Hepatic failure, unspecified without coma (principal); E72.20 Disorder of urea cycle metabolism, unspecified; E11.40 Type 2 diabetes mellitus with diabetic neuropathy, unspecified; Z79.899 Other long term (current) drug therapy; Z79.84 Long term (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 of oral hypoglycemic drugs
CPT/HCPCS: 36415; 82140; 99285

== ENCOUNTER 2022-10-02 14:29 | Emergency (ER) | payer OTHER ==
[~2022-10-02] VITALS: Ht 200.7 cm; Wt 115.5 kg
[~2022-10-02 14:29] MED LIST changes: +GAVILYTE-G SO4000 ML PO
--- OUTSIDE RECORDS SUMMARY | 2022-10-02 14:31 | XMS ---
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 No recent Security Events currently on file CRITERIA MET - 6 ED Visits in 6 Months - [facility] - [facility] - 2 Visits in 30 Days CARE PROVIDERS [facility] Animal Technician: Foot \T\ Ankle Surgery Current PHONE: [phone] JARRED OLSON Internal Medicine Current PHONE: [phone] TORRES ASHTON Ash Collector 12/28/2021-Current PHONE: [phone] ZEKE BLANCO Family [facility] 09/29/2020-Current PHONE: Unknown JOSE MATA Family [facility] Current PHONE: [phone] CINDY BRAXTON Nurse Practitioner: Family Current PHONE: Unknown ERLINDA SINGLETARY Internal Medicine Current PHONE: [phone] ASHLEE NOLEN Nurse Practitioner: Family Current PHONE: [phone] CLAY SOLOMON Nurse Practitioner Current [place] PHONE: [phone] HECTOR [facility] Current PHONE: Unknown CLAY [facility] Current PHONE: [phone] [place] has no Care Guidelines for this patient. Mary VISIT COUNT (12 MO.) 10 SIENA Fung TOTAL 10 NOTE: Visits indicate total known visits. ED/UCC VISIT TRACKING (12 MO.) 10/02/2022 14:29 [facility] TYPE: Emergency COMPLAINT: - ALTERED LOC 09/30/2022 21:11 [facility] TYPE: Emergency COMPLAINT: - CONFUSION 09/12/2022 09:44 [facility] TYPE: Emergency COMPLAINT: - ABNORMAL LABS 09/02/2022 19:37 [facility] TYPE: Emergency COMPLAINT: - WEAKNESS DIAGNOSES: - Contact with and (suspected) exposure to COVID-19 - Type 2 diabetes mellitus with diabetic neuropathy, unspecified - Hypomagnesemia - Other medical terminologist (current) drug therapy - Alcoholic cirrhosis of liver with ascites - intermediate (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 of oral hypoglycemic drugs - Chronic hepatic failure without coma - Hyperkalemia - Personal history of other venous thrombosis and embolism - supervisor intermediates (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 of anticoagulants 08/11/2022 19:51 [facility] TYPE: Emergency COMPLAINT: - WEAKNESS, DIARRHEA 06/15/2022 13:39 [facility] TYPE: Emergency COMPLAINT: - SWOLEN THROAT,RIB PAIN 04/26/2022 17:45 [facility] TYPE: Emergency COMPLAINT: - CHEST INJ DIAGNOSES: - Contusion of middle front wall of thorax, initial encounter - supervisor intermediates (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 - Fall on same level from slipping, tripping and stumbling without subsequent striking against object, initial encounter - Essential (primary) hypertension - Type 2 diabetes mellitus with diabetic polyneuropathy - Other medical terminologist (current) drug therapy - Chest pain, unspecified 01/07/2022 13:15 [facility] TYPE: Emergency COMPLAINT: - BOTH ANKLES SWOLLEN DIAGNOSES: - Localized edema - Essential (primary) hypertension - Type 2 diabetes mellitus without complications - Other medical terminologist (current) drug therapy - intermediate (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 12/27/2021 07:00 [facility] OR TYPE: Emergency COMPLAINT: - ALTERED MENTAL STATUS 10/13/2021 00:20 [facility] OR TYPE: Emergency COMPLAINT: - FALL INPATIENT VISIT TRACKING (12 MO.) 09/12/2022 12:30 [facility] OR TYPE: Medical Surgical COMPLAINT: - HYPERKALEMIA, PNEUMONIA DIAGNOSES: - Hyperkalemia - Pneumonia, unspecified organism - Alcoholic cirrhosis of liver with ascites - intermediate (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 - Acute kidney failure, unspecified - supervisor intermediates (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 - Type 2 diabetes mellitus with diabetic neuropathy, unspecified - Other specified postprocedural states - Alcoholic cirrhosis of liver with ascites - Acute embolism and thrombosis of left calf muscular vein - Other medical terminologist (current) drug therapy - Chronic pain syndrome - Depression, unspecified - Type 2 diabetes mellitus with diabetic neuropathy, unspecified - intermediate (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 of anticoagulants - Acute kidney failure, unspecified - Metabolic encephalopathy - Chronic pain syndrome - Anxiety disorder, unspecified - Anxiety disorder, unspecified - Depression, unspecified - Contact with and (suspected) exposure to COVID-19 - Hypotension, unspecified - Hyperkalemia - intermediate (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 of anticoagulants - Acute embolism and thrombosis of left calf muscular vein - Other care home (current) drug therapy - Contact with and (suspected) exposure to COVID-19 - Metabolic encephalopathy - Other specified postprocedural states - Hypotension, unspecified 08/12/2022 12:23 [facility] TYPE: Observation COMPLAINT: - HYPERKALEMIA, HYPOTENSION, CIRRHOSIS DIAGNOSES: - Contact with and (suspected) exposure to COVID-19 - Chronic hepatic failure without coma - Alcoholic cirrhosis of liver with ascites - Acute kidney failure, unspecified - Type 2 diabetes mellitus with diabetic neuropathy, unspecified - supervisor intermediates (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 of oral hypoglycemic drugs - Hyperkalemia - Alcohol abuse, uncomplicated - Chronic hepatic failure without coma - Alcoholic cirrhosis of liver with ascites - Type 2 diabetes mellitus without complications - Generalized anxiety disorder 06/15/2022 17:[address] [facility] [place] TYPE: Medical Surgical COMPLAINT: - PNEUMOTHORAX DIAGNOSES: - Traumatic subcutaneous emphysema, initial encounter - Essential (primary) hypertension - Type 2 diabetes mellitus with diabetic neuropathy, unspecified - Fall on same level, unspecified, initial encounter - Other specified postprocedural states - intermediate (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 of oral hypoglycemic drugs - [...] and (suspected) exposure to COVID-19 - Other medical terminologist (current) drug therapy - Traumatic pneumothorax, initial encounter - supervisor intermediates (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 - Essential (primary) hypertension - Type 2 diabetes mellitus with diabetic neuropathy, unspecified - intermediate (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 - Alcohol abuse, uncomplicated - Other care home (current) drug therapy - Fatty (change of) liver, not elsewhere classified - Contact with and (suspected) exposure to COVID-19 - intermediate (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 of oral hypoglycemic drugs - Fall on same level, unspecified, initial encounter - Other specified postprocedural states 12/27/2021 11:05 [facility] TYPE: Medical Surgical COMPLAINT: - ALCOHOLIC HEPATITIS ENCEPHALOPATHY DIAGNOSES: - Depression, unspecified - Hypo-osmolality and hyponatremia - Contact with and (suspected) exposure to COVID-19 - Depression, unspecified - Alcoholic cirrhosis of liver without ascites - Metabolic encephalopathy - Essential (primary) hypertension - Contact with and (suspected) exposure to COVID-19 - Essential (primary) hypertension - Alcoholic cirrhosis of liver without ascites - Other care home (current) drug therapy - Alcoholic hepatic failure without coma - Alcoholic hepatitis without ascites - Metabolic encephalopathy - Type 2 diabetes mellitus without complications - Alcoholic hepatitis without ascites - Hypo-osmolality and hyponatremia - Anxiety disorder, unspecified - Dehydration - Alcohol dependence with withdrawal, unspecified - supervisor intermediates (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 - Anxiety disorder, unspecified - Dehydration - Type 2 diabetes mellitus without complications - Alcohol dependence with withdrawal, unspecified - supervisor intermediates (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 - Other care home (current) drug therapy 10/13/2021 10:19 [facility] TYPE: Medical Surgical COMPLAINT: - ACUTE SUBARACHNOID HEMORRHAGE,SYNCOPE WITH COLLAPS DIAGNOSES: - Dehydration - Laceration without foreign body of scalp, initial encounter - Hypo-osmolality and hyponatremia - Repeated falls - Essential (primary) hypertension - Type 2 diabetes mellitus with hyperglycemia - Laceration without foreign body of scalp, initial encounter - Type 2 diabetes mellitus without complications - Other care home (current) drug therapy - Other fall on same level, initial encounter - supervisor intermediates (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 of oral hypoglycemic drugs - [...] falls - Anxiety disorder, unspecified - intermediate (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 of oral hypoglycemic drugs - Traumatic subarachnoid hemorrhage with loss of consciousness of unspecified duration, initial encounter [email or web address]
== END 2022-10-02 18:00 | disposition home or self-care (01) ==
LOC: ED 14:29
DX: K76.82 Hepatic encephalopathy (principal); E11.40 Type 2 diabetes mellitus with diabetic neuropathy, unspecified; Z79.899 Other long term (current) drug therapy
CPT/HCPCS: 36415; 80053; 82140; 85025; 85060; 99285; J7030